=== PATIENT | male | born 1990 | race Caucasian/White ===

== ENCOUNTER 2016-05-15 14:29 | Inpatient (IN) | payer BC, OTHER ==
[~2016-05-15] VITALS: Ht 175.3 cm; Wt 68.0 kg
[~2016-05-15 14:29] MED LIST: Amox Tr/Potassium Clavulanate PO; BENZ12LI MM; FLUT16SP NS; GABA800T2 PO; HYDR30CR10 TP; IBUP-1482 PO; LIDO20SO MM; MULT-24 PO; NICO4LOZ BC; QUET100T PO; SODI45SP6 NS; [UNRECOGNIZED DRUG - CODE] TP
[2016-05-15 17:30] VITALS: BP 126/67
[2016-05-15] MEDS ORDERED: BUPR-51 PO (17:36)
[2016-05-15 17:56] LABS: *AMPHETAMINE, URINE NEGATIVE (NEGATIVE); *BARBITURATE, URINE NEGATIVE (NEGATIVE); *CANNABINOID, URINE NEGATIVE (NEGATIVE); *COCCAINE, URINE NEGATIVE (NEGATIVE); *OPIATE, URINE POSITIVE (NEGATIVE); *PHENCYCLIDINE SCREEN,URINE NEGATIVE (NEGATIVE)
--- NOTE | 2016-05-15 18:30 | NUR ---
Admission Note; Patient is a 26 year old male, AOX4, presented to [facility] to detoxify from Heroin and Xanax. Patient arrived at intake office at approximately 1630. he is the primary source of information. Patient is admitted under the care of Dr. Gonzalez to room 304. Urine provided by patient for urine drug screen. Thorough belonging and body check done by CHIEF BUILDING INSPECTOR. Skin check done, open skin noted on patient's left arm due to previous abscess I & D procedure, site kept clean and dry. Patient appears anxious , with flushed face. Patient reported allergies to bees and Naloxone. Admitting vital signs are as follows; BP 126/67, HR 67, Temperature 97.7, Respirations 18, Spo2 100% on room air, COWS score of 5 and CIWA of 6. Discussed substance use history. Patient started using Heroin when he was 20 y/o, he recently relapsed 1 month and 3 weeks ago and started using Heroin 3 G/daily IV last used 05/13/16 3 G. Patient started using Xanax when he was 16 y/o, recently relapsed and started using 6mg-10mg Po/Snort last used 05/14/16 8mg. Patient also reported drinking ETOH (Vodka) on occasional basis only last drank 2 weeks ago. Discussed medical and psych history. Patient reported history of Hepatitis C, Cracked disc on his neck and recent outpatient I&D procedure for his left arm abscess, anxiety and depression. Patient reported history of seizure d/t withdrawal years ago. Patient does not have a primary care physician. Home medications reconciled. Patient has been to multiple treatment Centers before. Patient was recently at [facility] in November and was discharged on November 21, 2015. Patient has also been to [facility] in [facility] and [facility]. Oriented patient to unit. safety measures in place. Patient refused PNA/FLU vaccinations. Detailed report given to Dr. Gonzalez, psychiatrist was also notified. Will continue to monitor patient.
[2016-05-15] MEDS ORDERED: HYDROXYZINE PAMOATE 25 MG CAPSULE PO PRN (19:15)
[2016-05-15] MEDS ORDERED: ONDANSETRON ODT 4 MG TAB.RAPDIS SL PRN (19:15)
[2016-05-15] MEDS ORDERED: ACETAMINOPHEN 325 MG TABLET PO PRN (19:15)
[2016-05-15] MEDS ORDERED: LOPERAMIDE HCL 2 MG CAPSULE PO PRN ×2 (19:15)
[2016-05-15] MEDS ORDERED: ONDANSETRON 4 MG/2 ML VIAL IM PRN (19:15)
[2016-05-15] MEDS ORDERED: LORAZEPAM 2 MG/1 ML VIAL IM PRN (19:15)
[2016-05-15] MEDS ORDERED: MAGNESIUM HYDROXIDE 30 ML LIQUID UDC PO PRN (19:15)
[2016-05-15] MEDS ORDERED: THIAMINE HCL 200 MG/2 ML VIAL IM ONE (19:15)
[2016-05-15] MEDS ORDERED: MAG HYDROX/AL HYDROX/SIMETH 30 ML LIQUID UDC PO PRN (19:15)
[2016-05-15] MEDS ORDERED: diphenhydrAMINE 50 MG CAPSULE PO PRN (19:15)
[2016-05-15] MEDS ORDERED: CLONIDINE HCL 0.1 MG TABLET PO PRN (19:15)
[2016-05-15] MEDS ORDERED: LORAZEPAM 1 MG TABLET PO PRN ×2 (19:15)
[2016-05-15] MEDS ORDERED: MIRALAX 17 GM POWD.PACK PO PRN (19:15)
[2016-05-15] MEDS ORDERED: DICYCLOMINE HCL 20 MG TABLET PO PRN (19:15)
--- NOTE | 2016-05-15 19:21 | NUR ---
End of shift note; Patient is AOX4. Detailed report given to oncoming nurse. Safety measures secured.
[2016-05-15] MEDS ORDERED: BUPRENORPHINE HCL 2 MG TAB.SUBL SL PRN (19:30)
--- NOTE | 2016-05-15 19:30 | NUR ---
START OF SHIFT NOTE: Patient is a 26 y/o male admitted today 05/15/16 for Opiate and Benzo dependence. Patient reported using Heroin IV 3 grams daily, Xanax 6-10mg daily and ETOH occasionally. Patient with past medical history of I&D, Cracked disk on neck, Hepatitis C, Anxiety, & Depression. Seizure & Fall precaution. Patient is on a regular diet with allergies to bees and Naloxone. Full Code status. Patient placed on a 5-day Subutex and 5-day Ativan taper to be started tomorrow @ 0900. Initial Cows 5 Ciwa 6. No PRN medication given during day shift. Patient with left arm Open skin post I&D. Dressing clean and intact. No bleeding noted. Patient is alert & oriented x4. No shortness of breath noted. Respiration even & unlabored. Abdomen soft & non-distended. Bowel sounds active in all four quadrants. Patient complains of nausea & stomach cramps. No episode of vomiting noted. Patient noted with 8/10 body aches and noted to be restless and anxious. Facial grimacing noted. Patient complains of cold sweats and chills & 6/10 headache. No hallucinations noted. Patient denies SI/HI. Safety precautions are in place. Bed locked in lowest position. Both side rails up. Call light within pts reach. Will continue to monitor patient.
[2016-05-15 20:00] VITALS: BP 118/75
[2016-05-15] MEDS ORDERED: ALPR2TAB7 PO (20:03)
[2016-05-15] MEDS: GABAPENTIN 400 MG CAPSULE PO SCH (20:41)
[2016-05-15] MEDS: IBUPROFEN 600 MG TABLET PO PRN (20:42)
[2016-05-15] MEDS ORDERED: GABAPENTIN 300 MG CAPSULE PO SCH ×2 (21:00)
[2016-05-15 21:04] LABS: BASOPHILS # (AUTO) 0.1 K/uL (0.0-0.2); BASOPHILS % (AUTO) 0.8 % (0.0-2.0); EOSINOPHILS # (AUTO) 0.1 K/uL (0.0-0.7); EOSINOPHILS % (AUTO) 0.9 % (0.0-7.0); HEMOGLOBIN 14.8 g/dL (14.0-18.0); LYMPHOCYTES # (AUTO) 2.3 K/uL (0.8-4.8); LYMPHOCYTES % (AUTO) 33.9 % (20.5-51.5); MEAN CORPUSCULAR HGB CONC 33 g/dL (32.0-37.0); MONOCYTES # (AUTO) 0.6 K/uL (0.1-1.30); MONOCYTES % (AUTO) 8.1 % (0.0-11.0); NEUTROPHILS # (AUTO) 3.7 K/uL (1.8-8.9); NEUTROPHILS % (AUTO) 56.3 % (38.5-71.5); PLATELET COUNT (AUTO) 199 K/uL (150-450); RED BLOOD CELL COUNT(AUTO) 4.78 MIL/uL (4.70-6.10); RED CELL DISTRIBUTION WIDTH 11.5 % (11.5-14.5); WHITE BLOOD COUNT (AUTO) 6.8 K/uL (4.0-11.2)
[2016-05-15 21:16] LABS: ETHANOL < 3 MG/DL (0-0)
[2016-05-15 21:18] LABS: ALANINE AMINOTRANSFERASE 72 U/L (16-63); ALBUMIN 3.6 g/dL (3.4-5.0); ALKALINE PHOSPHATASE 82 U/L (50-136); ASPARTATE AMINOTRANSFERASE 46 U/L (15-37); BILIRUBIN,TOTAL 0.4 mg/dL (0.2-1.0); CHLORIDE 102 mmol/L (98-107); GFR 89 mL/min (>60); GLUCOSE 84 mg/dL (74-106); MAGNESIUM 1.9 mg/dL (1.8-2.4); POTASSIUM 3.8 mmol/L (3.5-5.1); SODIUM SERUM 140 mmol/L (136-145); TOTAL PROTEIN, SERUM 7.4 g/dL (6.4-8.2); UREA NITROGEN, BLOOD 11 mg/dL (7-18)
[2016-05-15 21:23] LABS: CARBON DIOXIDE 33 mmol/L (21-32)
[2016-05-15 21:29] LABS: THYROID STIMULATING HORMONE 0.316 mIU/mL (0.358-3.740)
[2016-05-15 21:36] LABS: HIV-1/2 ANTIBODY NON REACTIVE (NONREACTIVE)
[2016-05-15 21:37] LABS: HIV-1 p24 ANTIGEN NON REACTIVE (NONREACTIVE)
[2016-05-16] MEDS: METHOCARBAMOL 750 MG TABLET PO PRN ×2 (00:13→21:44)
--- NOTE | 2016-05-16 00:13 | NUR ---
PRN Clonidine & Robaxin Patient complains fo sweating, chills, anxiety & 5/10 body aches. Vitals signs WNL. Patient noted to be restless and appears anxious. PRN Clonidine & Robaxin given as ordered. Will continue to monitor patient.
[2016-05-16 00:29] VITALS: BP 124/78
--- NOTE | 2016-05-16 01:13 | NUR ---
PRN Reassessment PRN effective. Patient verbalized relief from withdrawals and body aches. No s/s of distress noted. No shortness of breath noted. Respiration even & unlabored. Safety precautions are in place. Will contiue to monitor patient.
[2016-05-16 04:00] VITALS: BP 104/59
--- NOTE | 2016-05-16 07:06 | NUR ---
END OF SHIFT NOTE: Patient is a 26 y/o male admitted today 05/15/16 for Opiate and Benzo dependence. Patient reported using Heroin IV 3 grams daily, Xanax 6-10mg daily and ETOH occasionally. Patient with past medical history of I&D, Cracked disk on neck, Hepatitis C, Anxiety, & Depression. Seizure & Fall precaution. Patient is on a regular diet with allergies to bees and Naloxone. Full Code status. Patient with left arm Open skin post I&D. Dressing clean and intact. No bleeding noted. Patient placed on a 5-day Subutex and 5-day Ativan taper to be started today @ 0900. At 2041, pt c/o of withdrawal symptoms and noted with a COWS 13 CIWA 10 and was given PRN Subutex 4mg, Ativan 1mg, Zofran for nausea and Motrin for body aches. Pt was also given PRN Clonidine and Robaxin at midnight and all were effective. Pt reported that medication was effective in controlling his withdrawal symptoms. Last COWS 6 CIWA 4 noted. Pt remained stable and vitals remains WNL. Pt slept for a total of 4 hours. Pt consumed 1096ml of fluids. Voided 1x with no bowel movement. All needs attended & met. Safety precautions are in place. Will endorse pt to day shift nurse.
--- NOTE | 2016-05-16 07:46 | NUR ---
Start of shift note; Received report from night nurse.Patient is currently resting with eyes closed, respirations even and unlabored. Patient is 26 y/o male admitted on 05/15/16 for Opiate/Benzo dependence. Patient started using Heroin when he was 20 y/o, he recently relapsed 1 month and 3 weeks ago and started using Heroin 3 G/daily IV last used 05/13/16 3 G. Patient started using Xanax when he was 16 y/o, recently relapsed and started using 6mg-10mg Po/Snort last used 05/14/16 8mg. Patient also reported drinking ETOH (Vodka) on occasional basis only last drank 2 weeks ago. Discussed medical and psych history. Patient reported history of Hepatitis C, Cracked disc on his neck and recent outpatient I&D procedure for his left arm abscess, anxiety and depression. Patient was placed on 5 day Subutex and 5 day Ativan taper to start today. Patient slept for 4 hours. Patient's last CIWA is 10 and last COWS is 13. Patient received PRN Ativan and PRN Subutex last night, noted to be effective. All safety measures secured. Will continue to monitor patient.
[2016-05-16 08:00] VITALS: BP 101/61
[2016-05-16] MEDS ORDERED: TUBERCULIN,PURIF.PROT.DERIV. 5 TU/0.1 ML TEST ID ONE (09:00)
[2016-05-16] MEDS ORDERED: 5 DAY TAPER BUPRENORPHINE -SERENITY PROTOCOL SL PRN (09:00)
[2016-05-16] MEDS ORDERED: 5 DAY TAPER OF LORAZEPAM -SERENITY PROTOCOL PO PRN (09:00)
[2016-05-16] MEDS: LORAZEPAM 1 MG TABLET PO SCH ×4 (09:47→21:44)
[2016-05-16] MEDS: THIAMINE HCL 100 MG TABLET PO SCH (09:48)
[2016-05-16] MEDS: GABAPENTIN 400 MG CAPSULE PO SCH ×3 (09:48→21:43)
[2016-05-16] MEDS: BUPRENORPHINE HCL 2 MG TAB.SUBL SL SCH ×4 (09:48→21:44)
[2016-05-16] MEDS: MULTIVITAMINS,THERAPEUTIC TABLET PO SCH (09:48)
[2016-05-16] MEDS: FOLIC ACID 1 MG TABLET PO SCH (09:48)
[2016-05-16] MEDS: DOCUSATE SODIUM 250 MG CAPSULE PO SCH (09:48)
[2016-05-16] MEDS: buPROPion XL 150 MG TAB.SR.24H PO SCH (09:48)
[2016-05-16 12:00] VITALS: BP 110/86
[2016-05-16 16:00] VITALS: BP 115/87
[2016-05-16] MEDS ORDERED: QUETIAPINE FUMARATE 100 MG TABLET PO SCH (18:00)
[2016-05-16] MEDS: BACITRACIN/POLYMYXIN B OINT 15 GM TUBE TOP SCH ×2 (18:28→21:00)
--- NOTE | 2016-05-16 18:29 | NUR ---
End of shift note; Patient is AOX4. Patient is 26 y/o male admitted on 05/15/16 for Opiate/Benzo dependence. Patient was started on 5 day Subutex and 5 day Ativan tapers today. Medications were effective in reducing withdrawal symptoms. Patient remained compliant with treatment plans. Patient was seen and evaluated by infectious disease doctor, ordered Bactrim DS Q12HR and Double ATB Ointment Q12 Hr to be applied to LUE wound, patient verbalized understanding. All safety measures secured. Met all needs.
[2016-05-16] MEDS ORDERED: BACITRACIN/POLYMYXIN B OINT 15 GM TUBE TOP PRN (18:30)
--- NOTE | 2016-05-16 19:30 | NUR ---
START OF SHIFT NOTE: Patient is a 26 y/o male admitted today 05/15/16 for Opiate and Benzo dependence. Patient reported using Heroin IV 3 grams daily, Xanax 6-10mg daily and ETOH occasionally. Patient with past medical history of I&D, Cracked disk on neck, Hepatitis C, Anxiety, & Depression. Seizure & Fall precaution. Patient is on a regular diet with allergies to bees and Naloxone. Full Code status. Patient is on a 5-day Subutex and 5-day Ativan taper and tolerating well. Last Cows 7 Ciwa 5. No PRN medication given during day shift. Patient with left arm Open skin post I&D. Dressing clean and intact. No bleeding noted. Patient is on ATB Bactrim PO for infection. Patient is alert & oriented x4. No shortness of breath noted. Respiration even & unlabored. Abdomen soft & non-distended. Bowel sounds active in all four quadrants. Patient complains of nausea & stomach cramps. No episode of vomiting noted. Patient noted with 8/10 body aches and noted to be restless and anxious. Facial grimacing noted. Patient complains of cold sweats and chills, restless legs & mild headache. No hallucinations noted. Patient denies SI/HI. Safety precautions are in place. Bed locked in lowest position. Both side rails up. Call light within pts reach. Will continue to monitor patient.
[2016-05-16 20:00] VITALS: BP 112/71
--- NOTE | 2016-05-16 21:00 | NUR ---
Late medication Patient refused to take medication for sleep at scheduled time. Patient requested if he can take medication at a later time. Scheduled seroquel was given to patient @ 8330. Patient is lying in bed. No s/s of distress noted. Will continue to monitor.
[2016-05-16] MEDS: SULFAMETH/TRIMETH 800/160 MG TABLET PO SCH (21:43)
--- NOTE | 2016-05-16 21:44 | NUR ---
PRN Robaxin Patient complains of 8/10 body aches. Patient appears restless with facial grimacing noted. PRn Robaxin given as ordered. Will continue to monitor.
--- NOTE | 2016-05-16 22:44 | NUR ---
PRN Reassessment PRN medication effective. Patient verbalized relief from body aches. Patient appears comfortable. No s/s of distress noted. Will continue to monitor.
[2016-05-16] MEDS: QUETIAPINE FUMARATE 100 MG TABLET PO SCH (23:28)
[2016-05-17] VITALS: BP 113/74
--- NOTE | 2016-05-17 04:00 | NUR ---
Vitals/Cows/Ciwa deferred Patient refused vitals at this time. Patient asleep in bed and appears comfortable. No s/s of distress noted. respiration even & unlabored. Safety precautions are in place. Will continue to monitor patient.
--- NOTE | 2016-05-17 07:08 | NUR ---
END OF SHIFT NOTE: Patient is a 26 y/o male admitted today 05/15/16 for Opiate and Benzo dependence. Patient reported using Heroin IV 3 grams daily, Xanax 6-10mg daily and ETOH occasionally. Patient with past medical history of I&D, Cracked disk on neck, Hepatitis C, Anxiety, & Depression. Seizure & Fall precaution. Patient is on a regular diet with allergies to bees and Naloxone. Full Code status. Patient with left arm Open skin post I&D. Dressing clean and intact. No bleeding noted. Patient is on a 5-day Subutex and 5-day Ativan taper and tolerating well. Pt reported that medication is effective in controlling his withdrawal symptoms. Last COWS 6 CIWA 3 noted. PRN Robaxin given to pt and were effective. Pt remained stable and vitals remains WNL. Pt slept for a total of 5 hours. Pt consumed 2484 ml of fluids. Voided 2x with no bowel movement. All needs attended & met. Safety precautions are in place. Will endorse pt to day shift nurse.
--- NOTE | 2016-05-17 07:34 | NUR ---
Start of shift note; Received report from night nurse.Patient is currently resting with eyes closed, respirations even and unlabored. Patient is 26 y/o male admitted on 05/15/16 for Opiate/Benzo dependence. Patient started using Heroin when he was 20 y/o, he recently relapsed 1 month and 3 weeks ago and started using Heroin 3 G/daily IV last used 05/13/16 3 G. Patient started using Xanax when he was 16 y/o, recently relapsed and started using 6mg-10mg Po/Snort last used 05/14/16 8mg. Patient also reported drinking ETOH (Vodka) on occasional basis only last drank 2 weeks ago. Discussed medical and psych history. Patient reported history of Hepatitis C, Cracked disc on his neck and recent outpatient I&D procedure for his left arm abscess, anxiety and depression. Patient was placed on 5 day Subutex and 5 day Ativan taper, no adverse reactions noted. Patient slept for 5 hours. Patient received PRN Robaxin last night, noted to be effective. All safety measures secured. Will continue to monitor patient.
[2016-05-17 08:00] VITALS: BP 103/62
[2016-05-17] MEDS: BUPRENORPHINE HCL 2 MG TAB.SUBL SL SCH ×3 (09:00→20:32)
[2016-05-17] MEDS: buPROPion XL 150 MG TAB.SR.24H PO SCH (09:00)
[2016-05-17] MEDS: FLUTICASONE PROP NASAL SPRAY 16 GM BOTTLE NS SCH ×2 (09:00→16:52)
[2016-05-17] MEDS: SULFAMETH/TRIMETH 800/160 MG TABLET PO SCH ×2 (09:00→20:31)
[2016-05-17] MEDS: THIAMINE HCL 100 MG TABLET PO SCH (09:00)
[2016-05-17] MEDS: DOCUSATE SODIUM 250 MG CAPSULE PO SCH (09:00)
[2016-05-17] MEDS: BACITRACIN/POLYMYXIN B OINT 15 GM TUBE TOP SCH ×2 (09:00→20:35)
[2016-05-17] MEDS: FOLIC ACID 1 MG TABLET PO SCH (09:00)
[2016-05-17] MEDS: LORAZEPAM 1 MG TABLET PO SCH ×3 (09:00→20:31)
[2016-05-17] MEDS: GABAPENTIN 400 MG CAPSULE PO SCH ×3 (09:00→20:31)
[2016-05-17] MEDS: MULTIVITAMINS,THERAPEUTIC TABLET PO SCH (09:00)
--- NOTE | 2016-05-17 10:13 | NUR ---
Medication refusal; Patient refused all morning medications due, educated patient regarding the importance of compliance to medication regime, patient verbalized understanding. Will continue to monitor patient. Addendum: 05/17/16 at 1111 by GILBERT CROOKS LVN MD made aware regarding patient's refusal to medications.
[2016-05-17 12:00] VITALS: BP 120/73
[2016-05-17 16:00] VITALS: BP 105/78
--- NOTE | 2016-05-17 18:12 | NUR ---
End of shift note; Patient is AOX4. Patient is 26 y/o male admitted on 05/15/16 for Opiate/Benzo dependence. Patient was started on 5 day Subutex and 5 day Ativan tapers today. Medications were effective in reducing withdrawal symptoms. Patient remained compliant with treatment plans. MD ordered Bactrim DS Q12HR and Double ATB Ointment Q12 Hr to be applied to LUE wound. All safety measures secured. Met all needs.
[2016-05-17 20:00] VITALS: BP 128/83
--- NOTE | 2016-05-17 20:00 | NUR ---
Start of Shift Pt is a 26 year old male admitted on 05/15/2016 for Opiate/Benzo dependence, placed on 5 day Ativan and 5 day Subutex taper. Pt reported using Heroin IV 3 grams/daily, Xanax Snort/PO 6-10mg and pt reported he drinks ETOH occasionally. Pt relapsed 1 month and 3 weeks ago. Pt is allergic to bees and Naloxone, regular diet, fall/seizure precautions and full code. PMH: I & D of abscess 2 weeks ago of LUE, cracked disc on neck (1 year ago), Hepatitis C, anxiety and depression. Upon assessment, pt reports anxiety and body/joint aches, respirations even and unlabored, denies SOB/chest pain, denies n/v/d, skin warm, moist, pt is on Bactrim DS Q12HR and Double ATB ointment Q12H HR to be applied to LUE wound. bowel sounds active x4, abdomen soft. Safety measures in place, call light within reach, side rails up x2, bed locked and in low position. Will continue to monitor.
[2016-05-17] MEDS: QUETIAPINE FUMARATE 100 MG TABLET PO SCH (20:31)
[2016-05-17] MEDS: METHOCARBAMOL 750 MG TABLET PO PRN (23:33)
--- NOTE | 2016-05-17 23:33 | NUR ---
PRN Administration Pt reported muscle aches. Robaxin 750mg PRN administered. Safety measures in place, call light within reach, side rails up x2, bed locked and in low position. Will continue to monitor.
[2016-05-18] VITALS: BP 125/84
--- NOTE | 2016-05-18 | NUR ---
Vital Signs BP 124/84, pulse 98, respirations 16, Spo2 99%, temp 97.8 CIWA/COWS deferred d/t pt sleeping, to asses while pt is awake as ordered. Pt is sleeping, no s/s of distress noted, respirations even and unlabored. Safety measures in place, call light within reach, side rails up x2, bed locked and in low position. Will continue to monitor.
--- NOTE | 2016-05-18 00:33 | NUR ---
PRN Reassessment Upon reassessment, pt is sleeping, no s/s of distress noted, respirations even and unlabored. Safety measures in place, call light within reach, side rails up x2, bed locked and in low position. Will continue to monitor.
--- NOTE | 2016-05-18 04:00 | NUR ---
Pt refused to be woken up for 0400 VS CIWA/COWS deferred d/t pt sleeping, to asses while pt is awake as ordered. Pt is sleeping, no s/s of distress noted, respirations even and unlabored. Safety measures in place, call light within reach, side rails up x2, bed locked and in low position. Will continue to monitor.
--- NOTE | 2016-05-18 07:00 | NUR ---
End of Shift Pt is a 26 year old male admitted on 05/15/2016 for Opiate/Benzo dependence, placed on 5 day Ativan and 5 day Subutex taper. Pt reported using Heroin IV 3 grams/daily, Xanax Snort/PO 6-10mg and pt reported he drinks ETOH occasionally. Pt relapsed 1 month and 3 weeks ago. Pt is allergic to bees and Naloxone, regular diet, fall/seizure precautions and full code. PMH: I & D of abscess 2 weeks ago of LUE, cracked disc on neck (1 year ago), Hepatitis C, anxiety and depression. During shift, pt presented with anxiety and body/joint aches - scheduled taper medications administered, effective in management of s/s of withdrawal as reported per pt, COWS 2 and CIWA 2. PRN Robaxin administered for muscle aches, effective. Pt is on Bactrim DS Q12HR and Double ATB ointment Q12H HR to be applied to LUE wound abscess. Pt slept for 4 hours, intake of 2867ml PO and voids x3. Safety measures in place, call light within reach, side rails up x2, bed locked and in low position. Endorsed to day shift nurse.
[2016-05-18 08:00] VITALS: BP 100/61
[2016-05-18] MEDS: BACITRACIN/POLYMYXIN B OINT 15 GM TUBE TOP SCH ×2 (09:00→21:26)
[2016-05-18] MEDS ORDERED: BUPRENORPHINE HCL 2 MG TAB.SUBL SL SCH (09:00)
[2016-05-18] MEDS: LORAZEPAM 1 MG TABLET PO SCH ×4 (09:24→21:21)
[2016-05-18] MEDS: buPROPion XL 150 MG TAB.SR.24H PO SCH (09:24)
[2016-05-18] MEDS: SULFAMETH/TRIMETH 800/160 MG TABLET PO SCH ×2 (09:24→21:21)
[2016-05-18] MEDS: DOCUSATE SODIUM 250 MG CAPSULE PO SCH (09:24)
[2016-05-18] MEDS: GABAPENTIN 400 MG CAPSULE PO SCH ×3 (09:25→21:21)
[2016-05-18] MEDS: FOLIC ACID 1 MG TABLET PO SCH (09:25)
[2016-05-18] MEDS: MULTIVITAMINS,THERAPEUTIC TABLET PO SCH (09:25)
[2016-05-18] MEDS: THIAMINE HCL 100 MG TABLET PO SCH (09:26)
[2016-05-18] MEDS: FLUTICASONE PROP NASAL SPRAY 16 GM BOTTLE NS SCH ×2 (09:26→17:13)
--- NOTE | 2016-05-18 09:45 | NUR ---
START OF SHIFT RECEIVED PT THIS AM AOX4 EATING BREAKFAST IN ROOM. PT STATES HE IS EXPERIENCING COLD SWEATS, LEG ACHES, NASAL STUFFINESS, STOMACH CRAMPS, ANXIOUSNESS AND TREMORS. PT DENIES S/I AND H/I. MEDICATED PT WITH MORNING MEDICATIONS. COWS 7 CIWA 6. WILL MONITOR EFFECTIVENESS OF MORNING MEDICATIONS. PT STATES HE HAD A DIFFICULT TIME FALLING ASLEEP LAST NIGHT AND ONLY SLEPT 4 HRS. PT CONTINUES ON 5 DAY ATIVAN AND SUBUTEX TAPER. TB TEST READ THIS AM AND WAS NEG. ENCOURAGED PT TO ATTEND GROUP TODAY AND DRINK FLUIDS TO FACILITATE HIS DETOX. WILL CONTINUE TO MONITOR AND PROVIDE SAFE AND SUPPORTIVE ENVIRONMENT.
[2016-05-18 12:00] VITALS: BP 105/78
[2016-05-18] MEDS: BUPRENORPHINE HCL 2 MG TAB.SUBL SL SCH ×2 (14:31→21:21)
[2016-05-18] MEDS: METHOCARBAMOL 750 MG TABLET PO PRN (14:35)
--- NOTE | 2016-05-18 14:36 | NUR ---
PRN ADMINISTRATION PRN ROBAXIN GIVEN TO PT FOR C/O LEG ACHES. WILL MONITOR EFFECTIVENESS.
--- NOTE | 2016-05-18 15:24 | NUR ---
PRN REASSESSMENT PRN ROBAXIN EFFECTIVE. PT STATES IT GAVE HIM RELIEF FROM LEG PAINS. PT IN NO DISTRESS.
[2016-05-18 16:00] VITALS: BP 115/76
[2016-05-18] MEDS: IBUPROFEN 600 MG TABLET PO PRN (17:13)
--- NOTE | 2016-05-18 17:15 | NUR ---
PRN MOTRIN GIVEN FOR REPORTED BODY ACHES.
--- NOTE | 2016-05-18 18:00 | NUR ---
PRN REASSESSMENT PT SLEEPING IN BED APPEARS TO BE IN NO DISTRESS. RR EVEN AND UNLABORED. BED IN LOWEST POSITION AND LOCKED. CALL FIGUEROA IN REACH. WILL CONTINUE TO MONITOR.
--- NOTE | 2016-05-18 18:38 | NUR ---
END OF SHIFT PT CONTINUES 5 DAY ATIVAN AND SUBUTEX TAPER. PT C/O MUSCLE ACHES TODAY AND WAS GIVEN ROBAXIN AND MOTRIN WITH EFFECTIVENESS. PT COMPLIANT WITH TREATMENT PLAN. LAST CIWA 3 COWS 6. PT INTERACTED WITH PEERS TODAY AND ATTENDED ACTIVITIES. INFECTIOUS DISEASE RESIDENTIAL TREATMENT STAFF ASSESSED PT WOUND. NO NEW ORDERS NOTED. NEW BANDAIDS AND GAUZE APPLIED TO WOUND PER PT REQUEST. ALL NEEDS MET. PT CURRENTLY SLEEPING IN BED WITH BED LOCKED AND IN LOWEST POSITION. RR EVEN AND UNLABORED. CALL FIGUEROA IN REACH. WILL PASS REPORT TO NIGHT NURSE.
[2016-05-18 20:00] VITALS: BP 116/71
--- NOTE | 2016-05-18 20:00 | NUR ---
Start of Shift Pt is a 26 year old male admitted on 05/15/2016 for Opiate/Benzo dependence, placed on 5 day Ativan and 5 day Subutex taper. Pt reported using Heroin IV 3 grams/daily, Xanax Snort/PO 6-10mg and pt reported he drinks ETOH occasionally. Pt relapsed 1 month and 3 weeks ago. Pt is allergic to bees and Naloxone, regular diet, fall/seizure precautions and full code. PMH: I & D of abscess 2 weeks ago of LUE, cracked disc on neck (1 year ago), Hepatitis C, anxiety and depression. Upon assessment, pt reports body/joint aches, respirations even and unlabored, denies SOB/chest pain, denies n/v/d, skin warm, moist, pt is on Bactrim DS Q12HR and Double ATB ointment Q12H HR to be applied to LUE wound. bowel sounds active x4, abdomen soft. Safety measures in place, call light within reach, side rails up x2, bed locked and in low position. Will continue to monitor.
[2016-05-18] MEDS: QUETIAPINE FUMARATE 100 MG TABLET PO SCH (21:21)
[2016-05-19] VITALS: BP 110/74
--- NOTE | 2016-05-19 | NUR ---
Vital Signs BP 110/74, pulse 90, respirations 16, Spo2 99%, temp 98.1 CIWA/COWS deferred d/t pt sleeping, to asses while pt is awake as ordered. Pt is sleeping, no s/s of distress noted, respirations even and unlabored. Safety measures in place, call light within reach, side rails up x2, bed locked and in low position. Will continue to monitor.
[2016-05-19 03:09] LABS: HCV AB >11.0 s/co ratio (0.0-0.9); HEPATITIS B CORE AB, IgM Negative (Negative); HEPATITIS B SURFACE AG Negative (Negative)
--- NOTE | 2016-05-19 07:00 | NUR ---
End of Shift Pt is a 26 year old male admitted on 05/15/2016 for Opiate/Benzo dependence, placed on 5 day Ativan and 5 day Subutex taper. Pt reported using Heroin IV 3 grams/daily, Xanax Snort/PO 6-10mg and pt reported he drinks ETOH occasionally. Pt relapsed 1 month and 3 weeks ago. Pt is allergic to bees and Naloxone, regular diet, fall/seizure precautions and full code. PMH: I & D of abscess 2 weeks ago of LUE, cracked disc on neck (1 year ago), Hepatitis C, anxiety and depression. During shift, pt presented wtih body/joint aches - scheduled taper medications administered, effective in management of s/s of withdrawal, as stated by pt, COWS 5 and CIWA 3. No PRN medications administered. Pt slept for 5 hours, intake of 1700 ml PO and voids x2. VS stable, Safety measures in place, call light within reach, side rails up x2, bed locked and in low position. Endorsed to day shift nurse.
--- NOTE | 2016-05-19 07:01 | NUR ---
Start of Shift Notes: Received patient in his room. Alert and oriented x 4. Verbally responsive. Appears anxious and tremulous at this time. Able to make his needs known. Respirations even and unlabored. No SOB noted. Skin warm and dry to touch. Abdomen soft and non-distended. BS (+) in all 4 quadrants. No complains of N/V/D or constipation noted. Bladder non-distended. No complains of dysuria noted. Voids independently. Ambulatory ad marya with steady gait. Patient is a 26 year old male admitted for opiate/BZO and ETOh dependence who was placed on a 5-day Ativan taper as ordered and 5-day Subutex taper as ordered. No adverse reactions noted. Has past medical hx of Hep C, anxiety, depression. Allergic to Naloxone. FULL CODE. Regular diet. On fall and seizure precautions. Educated patient on the current plan of care for the day and the medication regimen. Encouraged oral fluid intake and encouraged group participation to learn new skills to prevent relapse. Will continue to monitor closely.
[2016-05-19 08:00] VITALS: BP 97/55
[2016-05-19 08:56] LABS: BASOPHILS # (AUTO) 0.1 K/uL (0.0-0.2); BASOPHILS % (AUTO) 1.3 % (0.0-2.0); EOSINOPHILS # (AUTO) 0.2 K/uL (0.0-0.7); EOSINOPHILS % (AUTO) 3.2 % (0.0-7.0); HEMATOCRIT 42.8 % (40.0-50.0); HEMOGLOBIN 14.5 g/dL (14.0-18.0); LYMPHOCYTES % (AUTO) 53.4 % (20.5-51.5); MEAN CORPUSCULAR HEMOGLOBIN 31.8 uug (27.0-31.0); MEAN CORPUSCULAR HGB CONC 34 g/dL (32.0-37.0); MEAN CORPUSCULAR VOLUME 93.6 fL (82.0-92.0); MONOCYTES # (AUTO) 0.5 K/uL (0.1-1.30); MONOCYTES % (AUTO) 8.4 % (0.0-11.0); NEUTROPHILS # (AUTO) 1.9 K/uL (1.8-8.9); NEUTROPHILS % (AUTO) 33.7 % (38.5-71.5); PLATELET COUNT (AUTO) 221 K/uL (150-450); RED BLOOD CELL COUNT(AUTO) 4.57 MIL/uL (4.70-6.10); RED CELL DISTRIBUTION WIDTH 11.9 % (11.5-14.5); WHITE BLOOD COUNT (AUTO) 5.8 K/uL (4.0-11.2)
[2016-05-19] MEDS: MULTIVITAMINS,THERAPEUTIC TABLET PO SCH (09:10)
[2016-05-19] MEDS: DOCUSATE SODIUM 250 MG CAPSULE PO SCH (09:10)
[2016-05-19] MEDS: FLUTICASONE PROP NASAL SPRAY 16 GM BOTTLE NS SCH ×2 (09:10→16:08)
[2016-05-19] MEDS: buPROPion XL 150 MG TAB.SR.24H PO SCH (09:10)
[2016-05-19] MEDS: BUPRENORPHINE HCL 2 MG TAB.SUBL SL SCH ×3 (09:11→21:06)
[2016-05-19] MEDS: LORAZEPAM 1 MG TABLET PO SCH ×3 (09:11→21:06)
[2016-05-19] MEDS: BACITRACIN/POLYMYXIN B OINT 15 GM TUBE TOP SCH ×2 (09:11→21:07)
[2016-05-19] MEDS: THIAMINE HCL 100 MG TABLET PO SCH (09:11)
[2016-05-19] MEDS: FOLIC ACID 1 MG TABLET PO SCH (09:11)
[2016-05-19 09:34] LABS: BASOPHILS % (MANUAL) 0 % (0-2); EOSINOPHILS % (MANUAL) 4 % (0-8); LYMPHOCYTES % (MANUAL) 53 % (20-40); MONOCYTES % (MANUAL) 9 % (2-10); NEUTROPHILS % (MANUAL) 27 % (42-75); PLATELET ESTIMATE ADEQUATE
[2016-05-19] MEDS: GABAPENTIN 400 MG CAPSULE PO SCH ×3 (09:40→21:06)
[2016-05-19 09:59] LABS: CALCIUM 8.4 mg/dL (8.5-10.1); CREATININE 1.2 mg/dL (0.6-1.3); MAGNESIUM 1.9 mg/dL (1.8-2.4); PHOSPHOROUS 4.4 mg/dL (2.5-4.9); POTASSIUM 4.4 mmol/L (3.5-5.1)
[2016-05-19 12:00] VITALS: BP 125/75
[2016-05-19] MEDS: CLONIDINE HCL 0.1 MG TABLET PO SCH ×2 (14:04→21:06)
[2016-05-19 16:00] VITALS: BP 109/70
--- NOTE | 2016-05-19 16:08 | NUR ---
Flonase not administered: Flonase at 1700 not administered at this time. Per patient, he does not need it. No complains of runny nose or stuffiness noted. Educated patient on the risk and consequences but patient still refused.
--- NOTE | 2016-05-19 18:40 | NUR ---
End of Shift Notes: Patient is a 26 year old male admitted for opiate and BZO dependence who was placed on a 5-day Ativan and 5-day Subutex taper as ordered. No adverse reactions noted. Patient is tolerating taper well. Has past medical hx of I&D on left arm 2 weeks prior to admission, cracked cervical disk, Hep C, anxiety and depression. Regular diet. FULL CODE. Allergic to Bees and Naloxone. Prior to admission, patient was using 3 grams of Heroin IV, Xanax 6 to 10 mg PO or snorted and occasional Vodka 1 pint. VS monitored closely q 4 hours. No significant abnormalities noted. Withdrawal symptoms were closely monitored. Patient presented with chills, hot flashes, anxiety, agitation, and mild sweats. Initial COWS 4, CIWA 4. Last COWS 2/, CIWA 2. Per patient, Subutex and Ativan has been helping him with his withdrawal symptoms. Patient requires encouragement to participate in group and activities. Labs reviewed. Seen and examined by Dr. Gonzalez with [facility]. Continue tx to left upper arm s/p I&D site. Tolerated well. Educated patient on the s.s of infection and good handwashing. All needs met and attended. Will continue to monitor closely.
[2016-05-19 20:00] VITALS: BP 121/65
--- NOTE | 2016-05-19 20:00 | NUR ---
Start of Shift Pt is a 26 year old male admitted on 05/15/2016 for Opiate/Benzo dependence, placed on 5 day Ativan and 5 day Subutex taper. Pt reported using Heroin IV 3 grams/daily, Xanax Snort/PO 6-10mg and pt reported he drinks ETOH occasionally. Pt relapsed 1 month and 3 weeks ago. Pt is allergic to bees and Naloxone, regular diet, fall/seizure precautions and full code. PMH: I & D of abscess 2 weeks ago of LUE, cracked disc on neck (1 year ago), Hepatitis C, anxiety and depression. Upon assessment, respirations even and unlabored, denies SOB/chest pain, denies n/v/d, skin warm, moist, pt is on Bactrim DS Q12HR and Double ATB ointment Q12H HR to be applied to LUE wound. bowel sounds active x4, abdomen soft. Safety measures in place, call light within reach, side rails up x2, bed locked and in low position. Will continue to monitor.
[2016-05-19] MEDS: QUETIAPINE FUMARATE 100 MG TABLET PO SCH (21:05)
--- NOTE | 2016-05-20 | NUR ---
Pt refused to be woken up for 0000 VS CIWA/COWS deferred d/t pt sleeping, to asses while pt is awake as ordered. Pt is sleeping, no s/s of distress noted, respirations even and unlabored. Safety measures in place, call light within reach, side rails up x2, bed locked and in low position. Will continue to monitor.
--- NOTE | 2016-05-20 07:00 | NUR ---
End of Shift Pt is a 26 year old male admitted on 05/15/2016 for Opiate/Benzo dependence, placed on 5 day Ativan and 5 day Subutex taper. Pt reported using Heroin IV 3 grams/daily, Xanax Snort/PO 6-10mg and pt reported he drinks ETOH occasionally. Pt relapsed 1 month and 3 weeks ago. Pt is allergic to bees and Naloxone, regular diet, fall/seizure precautions and full code. PMH: I & D of abscess 2 weeks ago of LUE, cracked disc on neck (1 year ago), Hepatitis C, anxiety and depression. Scheduled taper medications administered, COWS 2 and CIWA 2. No PRN medications administered during shift, VS stable, Pt slept for 4 hours, intake of 1006 ml PO and voids x2. Safety measures in place, call light within reach, side rails up x2, bed locked and in low position. Endorsed to day shift nurse.
--- NOTE | 2016-05-20 07:50 | NUR ---
START OF SHIFT Received report from production supervisor off shift nurse. Pt is lying in bed resting. He is a 26 yo male admitted to [facility] on 05/15 for Opiate and BZD dependence. He is A&O x4 and ambulatory. Allergies to bees and naloxone, full code status, and on a regular diet. He has a H hepatitis C, fractured disc of the neck, I&D of left arm abscess 2 weeks ago, anxiety, and depression. On admission he admitted to using heroin IV 3 grams per day, xanax 6-10mg per day, and occasional vodka use. He is ordered a 5 day subutex and Ativan taper. He has topical and PO abx for abscess site. Pt reports body aches, hot and cold flashes, and restless legs. Fall and seizure precautions in place. Bed is down with call light in reach.
[2016-05-20 08:00] VITALS: BP 104/66
[2016-05-20] MEDS: buPROPion XL 150 MG TAB.SR.24H PO SCH (09:00)
[2016-05-20] MEDS ORDERED: BUPRENORPHINE HCL 2 MG TAB.SUBL SL SCH (09:00)
[2016-05-20] MEDS: LORAZEPAM 1 MG TABLET PO SCH ×2 (09:52→21:33)
[2016-05-20] MEDS: FLUTICASONE PROP NASAL SPRAY 16 GM BOTTLE NS SCH ×2 (09:52→17:00)
[2016-05-20] MEDS: FOLIC ACID 1 MG TABLET PO SCH (09:53)
[2016-05-20] MEDS: DOCUSATE SODIUM 250 MG CAPSULE PO SCH (09:53)
[2016-05-20] MEDS: CLONIDINE HCL 0.1 MG TABLET PO SCH ×4 (09:53→21:33)
[2016-05-20] MEDS: GABAPENTIN 400 MG CAPSULE PO SCH (09:53)
[2016-05-20] MEDS: THIAMINE HCL 100 MG TABLET PO SCH (09:54)
[2016-05-20] MEDS: METHOCARBAMOL 750 MG TABLET PO PRN (09:54)
[2016-05-20] MEDS: MULTIVITAMINS,THERAPEUTIC TABLET PO SCH (09:54)
[2016-05-20] MEDS: IBUPROFEN 600 MG TABLET PO PRN (09:54)
[2016-05-20] MEDS: BACITRACIN/POLYMYXIN B OINT 15 GM TUBE TOP SCH ×2 (09:55→21:34)
--- NOTE | 2016-05-20 09:55 | NUR ---
PRN Robaxin and Motrin Pt reports body aches, restless legs, and headache. PRN Robaxin and Motrin administered.
--- NOTE | 2016-05-20 10:55 | NUR ---
PRN Motrin and Robaxin reassessment PRN Motrin and Robaxin effective. Pt reports relief of head ache and decreased body aches. He continues to have restless legs.
[2016-05-20] MEDS: LIDOCAINE 5% PATCH TD SCH (11:55)
[2016-05-20 12:00] VITALS: BP 102/68
[2016-05-20] MEDS ORDERED: GABAPENTIN 400 MG CAPSULE PO SCH (15:00)
[2016-05-20] MEDS: GABAPENTIN 300 MG CAPSULE PO SCH ×2 (15:29→21:33)
[2016-05-20 16:00] VITALS: BP 102/68
[2016-05-20 20:00] VITALS: BP 117/84
--- NOTE | 2016-05-20 20:00 | NUR ---
START OF SHIFT Received 26 year old male patient admitted on 05/15/16 for Heroin, Xanax and ETOH dependency. Pt is full code with allergy to beer and naloxone. Pt reports PMHx of I&D from abcess 2 weeks ago on left arm., cracked disc on neck (1 year ago), Hepatits C, Anxiety and Depression. He reports using Heroin 3 gram IV for 1 month and 3 weeks. Last dose was 3 gram on 05/13/16. Xanax 6-10 mg daily ( snort/PO) for 1 month and 3 weeks. Last dose was 8 mg on 05/14/16. And ETOH (vodka) occasional use. Last drank 2 weeks ago. Pt placed on 5 day Ativan and 5 day Subutex taper started on 05/16/16 and tolerating well. Per endorsement, pt received PRN Robaxin and Motrin. Pt is alert and oriented x4, breathing is even and unlabored, safety measures in place. Will continue to monitor.
--- NOTE | 2016-05-20 20:30 | NUR ---
END OF SHIFT Report provided to day shift nurse. Pt is in his room watching TV.. He is a 26 yo male admitted to [facility] on 05/15 for Opiate and BZD dependence. He is A&O x4 and ambulatory. Allergies to bees and naloxone, full code status, and on a regular diet. He has a [facility] hepatitis C, fractured disc of the neck, I&D of left arm abscess 2 weeks ago, anxiety, and depression. On admission he admitted to using heroin IV 3 grams per day, xanax 6-10mg per day, and occasional vodka use. He is ordered a 5 day subutex and Ativan taper. He has topical abx for abscess site. Lidocaine patch ordered for neck pain. PRN Motrin and Robaxin administered. He experienced anxiety, chills, and body aches. Last COWS 4 and CIWA 3. Fall and seizure precautions in place. Bed is down with call light in reach.
[2016-05-20] MEDS: QUETIAPINE FUMARATE 100 MG TABLET PO SCH (21:34)
[2016-05-21] VITALS: BP 108/62
--- NOTE | 2016-05-21 04:03 | NUR ---
VITALS Pt refused 399 vitals. Pt stated " no, I want to sleep." Breathing is even and unlabored,respirations 16. Safety measures in place. Will continue to monitor. Addendum: 05/21/16 at 0405 by GUIDO ANGULO RN Amended: Links added.
--- NOTE | 2016-05-21 06:59 | NUR ---
END OF SHIFT Pt remained stable and had uneventful night. Pt did not receive or request PRN medications during shift. Pt complained of restless legs and body aches related to withdrawal. Medications effective as evidenced by last COWS:2, CIWA:2 at 0400. He slept a total of 6 hrs, Intake:651 mL Void: x1 BM:0 . Breathing is even and unlabored. Pt safe with bed locked in lowest position, side rails up x2 and call light within reach. Endorsed to oncoming nurse.
--- NOTE | 2016-05-21 07:00 | NUR ---
Start of Shift Notes: Received patient in his room. Alert and oriented x 4. Verbally responsive. Appears anxious and tremulous at this time. Able to make his needs known. Respirations even and unlabored. No SOB noted. Skin warm and dry to touch. Dressing to left upper forearm intact and clean. Abdomen soft and non-distended. BS (+) in all 4 quadrants. No complains of N/V/D or constipation noted. Bladder non-distended. No complains of dysuria noted. Voids independently. Ambulatory ad marya with steady gait. Patient is a 26 year old male admitted for opiate/BZO and ETOh dependence who was placed on a 5-day Ativan taper as ordered and 5-day Subutex taper as ordered. No adverse reactions noted. Has past medical hx of Hep C, anxiety, depression. Allergic to Naloxone. FULL CODE. Regular diet. On fall and seizure precautions. Educated patient on the current plan of care for the day and the medication regimen. Encouraged oral fluid intake and encouraged group participation to learn new skills to prevent relapse. Will continue to monitor closely.
[2016-05-21 08:00] VITALS: BP 100/62
[2016-05-21] MEDS: BACITRACIN/POLYMYXIN B OINT 15 GM TUBE TOP SCH ×2 (08:59→20:55)
[2016-05-21] MEDS: LIDOCAINE 5% PATCH TD SCH (08:59)
[2016-05-21] MEDS: DOCUSATE SODIUM 250 MG CAPSULE PO SCH (08:59)
[2016-05-21] MEDS: CLONIDINE HCL 0.1 MG TABLET PO SCH ×4 (08:59→20:55)
[2016-05-21] MEDS: FOLIC ACID 1 MG TABLET PO SCH (08:59)
[2016-05-21] MEDS: GABAPENTIN 300 MG CAPSULE PO SCH ×3 (08:59→20:55)
[2016-05-21] MEDS: MULTIVITAMINS,THERAPEUTIC TABLET PO SCH (08:59)
[2016-05-21] MEDS: THIAMINE HCL 100 MG TABLET PO SCH (08:59)
[2016-05-21] MEDS: buPROPion XL 150 MG TAB.SR.24H PO SCH (08:59)
[2016-05-21] MEDS: FLUTICASONE PROP NASAL SPRAY 16 GM BOTTLE NS SCH ×2 (09:00→17:00)
--- NOTE | 2016-05-21 09:00 | NUR ---
Wound Care: Wound care done to left upper forearm. Cleansed area with NS, applied double ATB ointment and covered with DD. Good handwashing observed. Educated on the s/s of infection. Patient verbalized understanding.
[2016-05-21 12:00] VITALS: BP 111/62
--- NOTE | 2016-05-21 13:00 | NUR ---
Wound pic taken: Wound pick taken for discharged. Wound care provided.
[2016-05-21 13:08] LABS: *AMPHETAMINE, URINE NEGATIVE (NEGATIVE); *BARBITURATE, URINE NEGATIVE (NEGATIVE); *CANNABINOID, URINE NEGATIVE (NEGATIVE); *COCCAINE, URINE NEGATIVE (NEGATIVE); *OPIATE, URINE NEGATIVE (NEGATIVE); *PHENCYCLIDINE SCREEN,URINE NEGATIVE (NEGATIVE)
[2016-05-21] MEDS ORDERED: METH-33 PO (14:23)
[2016-05-21] MEDS ORDERED: DICY20TA28 PO (14:23)
[2016-05-21] MEDS ORDERED: LIDO30AD10 TD (14:23)
[2016-05-21] MEDS ORDERED: HYDR-3895 PO (14:23)
[2016-05-21 16:00] VITALS: BP 103/54
--- NOTE | 2016-05-21 18:37 | NUR ---
End of Shift Notes: Patient is a 26 year old male admitted for opiate and BZO dependence who was placed on a 5-day Ativan and 5-day Subutex taper as ordered. No adverse reactions noted. Patient completed the taper and tolerated well. Has past medical hx of I&D on left arm 2 weeks prior to admission, cracked cervical disk, Hep C, anxiety and depression. Regular diet. FULL CODE. Allergic to Bees and Naloxone. Prior to admission, patient was using 3 grams of Heroin IV, Xanax 6 to 10 mg PO or snorted and occasional Vodka 1 pint. VS monitored closely q 4 hours. No significant abnormalities noted. Withdrawal symptoms were closely monitored. Patient presented with anxiety and mild bone aches. Initial COWS 2, CIWA 2. Last COWS 2 /, CIWA 1. Per patient, Subutex and Ativan has been helping him with his withdrawal symptoms. Patient requires encouragement to participate in group and activities. Labs reviewed. Seen and examined by Dr. Gonzalez with [facility]. Continue tx to left upper arm s/p I&D site. Tolerated well. Educated patient on the s.s of infection and good handwashing. All needs met and attended. Will continue to monitor closely.
--- NOTE | 2016-05-21 19:15 | NUR ---
START OF SHIFT Received 26 year old male patient admitted on 05/15/16 for Heroin, Xanax and ETOH dependency. Pt is full code with allergy to beer and naloxone. Pt reports PMHx of I&D from [facility] 2 weeks ago on left arm, cracked disc on neck (1 year ago), Hepatitis C, Anxiety and Depression. Pt completed 5 day Ativan and 5 day Subutex taper started on 05/16/16 and tolerated well. Per endorsement, he is scheduled to be DC tomorrow 05/22/16 to [facility]. Pt did not receive or request PRN medications. Pt is alert and oriented x4, breathing is even and unlabored, safety measures in place. Will continue to monitor.
[2016-05-21 20:00] VITALS: BP 120/65
[2016-05-21] MEDS: QUETIAPINE FUMARATE 100 MG TABLET PO SCH (20:55)
--- NOTE | 2016-05-21 22:30 | NUR ---
ENDORSED Pt care endorsed to Vicki Fraser RN.
--- NOTE | 2016-05-21 22:31 | NUR ---
ENDORSEMENT RECEIVED received pt from Jana Barker RN. All pertinent information discussed. Pt currently in bed, reports fatigue and ready to sleep. All needs attended.
[2016-05-22] VITALS: BP 101/47
--- NOTE | 2016-05-22 04:00 | NUR ---
VS, COWS, CIWA Pt refused VS assessment. Pt educated on importance of taking and recording VS, but still refused. CIWA and COWS deferred d/t MD order to "while awake". Pt restig calmly, RR 16 breaths per minute. Side rails up x 2, call light within reach, bed locked in lowest position Addendum: 05/22/16 at 0550 by SEAN SIERRA RN Amended: Links added.
--- NOTE | 2016-05-22 07:39 | NUR ---
Start of shift note; Received report from night nurse.Patient is currently resting with eyes closed, respirations even and unlabored. Patient is 26 y/o male admitted on 05/15/16 for Opiate/Benzo dependence. Patient started using Heroin when he was 20 y/o, he recently relapsed 1 month and 3 weeks ago and started using Heroin 3 G/daily IV last used 05/13/16 3 G. Patient started using Xanax when he was 16 y/o, recently relapsed and started using 6mg-10mg Po/Snort last used 05/14/16 8mg. Patient also reported drinking ETOH (Vodka) on occasional basis only last drank 2 weeks ago. Discussed medical and psych history. Patient reported history of Hepatitis C, Cracked disc on his neck and recent outpatient I&D procedure for his left arm abscess, anxiety and depression. Patient was placed on 5 day Subutex and 5 day Ativan taper,completed taper without any adverse reactions noted. Patient is medically cleared for discharge today. All safety measures secured. Will continue to monitor patient.
--- NOTE | 2016-05-22 07:41 | NUR ---
END OF SHIFT NOTE Pt is 26 y o male, admitted on for heroin, Xanax and ETOH dependence. Pt has completed 5 day Ativan, 5 day Subutex tapers and scheduled for discharge on 05/23/15. Discharge orders in chart, UDT completed and results placed in chart. VSS throughout the shift. No prns were given. Last COWS 2, CIWA 1 at 0000. Pt refused VS at 0400, states "I need to sleep before leaving". Pt slept for 5 hrs. Currently pt asleep, RR unlabored. Fall and seizure precautions in place. Report endorsed to day shift nurse
[2016-05-22 08:00] VITALS: BP 92/60
[2016-05-22] MEDS: FOLIC ACID 1 MG TABLET PO SCH (08:31)
[2016-05-22] MEDS: MULTIVITAMINS,THERAPEUTIC TABLET PO SCH (08:31)
[2016-05-22] MEDS: GABAPENTIN 300 MG CAPSULE PO SCH (08:31)
[2016-05-22] MEDS: buPROPion XL 150 MG TAB.SR.24H PO SCH ×2 (08:31→08:35)
[2016-05-22] MEDS: THIAMINE HCL 100 MG TABLET PO SCH (08:31)
[2016-05-22] MEDS: DOCUSATE SODIUM 250 MG CAPSULE PO SCH (08:31)
[2016-05-22] MEDS: BACITRACIN/POLYMYXIN B OINT 15 GM TUBE TOP SCH (08:32)
[2016-05-22] MEDS: FLUTICASONE PROP NASAL SPRAY 16 GM BOTTLE NS SCH (08:32)
[2016-05-22] MEDS: CLONIDINE HCL 0.1 MG TABLET PO SCH (08:35)
[2016-05-22] MEDS: LIDOCAINE 5% PATCH TD SCH (08:35)
--- NOTE | 2016-05-22 10:35 | NUR ---
Discharge note; Patient is AOX4. All patient's belongings, valuables,medications and prescriptions given to patient. Patient completed treatment plan without any adverse reactions. Patient left the hospital at exactly 1035 on 05/22/16, patient remained in a stable condition. Met all needs.
[2016-05-24 10:12] LABS: *CODEINE Positive (.); *HYDROMORPHONE Negative (Cutoff=300); *OPIATES Positive ng/mL (Cutoff=300)
== END 2016-05-22 10:35 | DRG 895 ==
LOC: SRC 16:39
PROVIDERS: ADMIT Internal Medicine; ATTEND Internal Medicine
PROC: HZ2ZZZZ Detoxification Services for Substance Abuse Treatment (ICD-10-PCS; principal; 2016-05-15)
PROC: HZ41ZZZ Group Counseling for Substance Abuse Treatment, Behavioral (ICD-10-PCS; 2016-05-16)
DX: F11.23 Opioid dependence with withdrawal (principal); L02.414 Cutaneous abscess of left upper limb; G89.21 Chronic pain due to trauma; F13.230 Sedative, hypnotic or anxiolytic dependence with withdrawal, uncomplicated; S12.400S Unspecified displaced fracture of fifth cervical vertebra, sequela; X58.XXXS Exposure to other specified factors, sequela; M54.10 Radiculopathy, site unspecified; F13.239 Sedative, hypnotic or anxiolytic dependence with withdrawal, unspecified; F17.210 Nicotine dependence, cigarettes, uncomplicated; F10.239 Alcohol dependence with withdrawal, unspecified
CPT/HCPCS: 36415; 70030-TC; 80307; 80361; 83735; 84100; 84443; 85025; 86580; 86592; 86705; 86803; 87340; 87806; G6040-TC; J3535; Q0162

== ENCOUNTER 2016-08-25 16:05 | Inpatient (IN) | payer BC, OTHER ==
[~2016-08-25] VITALS: Ht 182.9 cm; Wt 68.0 kg
[~2016-08-25 16:05] MED LIST changes: -Amox Tr/Potassium Clavulanate PO; +BUPR-51 PO; +DICY20TA28 PO; +HYDR-3895 PO; -IBUP-1482 PO; +IBUP-1957 PO; +LIDO30AD10 TD; +METH-33 PO; +NICO-463 BC; -NICO4LOZ BC
--- NOTE | 2016-08-25 21:30 | NUR ---
Pre-admission assessment Patient is a 26-year old, male, seen at intake, AAOx4, no SOB and no anxiety noted at this time. Discussed with patient admission policies of the unit. Patient is coherent and able to respond to questions appropriately. Patient reported that he and his partner live in cars, hotels and friends' places for the past month. Pt is ambulatory with steady gait. Pt reports that he left a sober living facility about a month ago, and has been using these substance daily: Heroin 1.5 to 2 gms IV and Xanax 6-10 mg PO. Vital signs taken and as follows: IT=031/67, P=92, O2 sat on RA=97%, RR=16, T=97.4. Pt verbalized instructions and teachings regarding disposal of narcotic and other controlled home meds, unit protocols such as taking of vital signs Q4H and handling and disposal of contraband.
[2016-08-25] MEDS ORDERED: MAGNESIUM HYDROXIDE 30 ML LIQUID UDC PO PRN (22:30)
[2016-08-25] MEDS ORDERED: ONDANSETRON ODT 4 MG TAB.RAPDIS SL PRN (22:30)
[2016-08-25] MEDS ORDERED: LOPERAMIDE HCL 2 MG CAPSULE PO PRN ×2 (22:30)
[2016-08-25] MEDS ORDERED: CLONIDINE HCL 0.1 MG TABLET PO PRN (22:30)
[2016-08-25] MEDS ORDERED: LORAZEPAM 1 MG TABLET PO ONE (22:30)
[2016-08-25] MEDS ORDERED: BUPRENORPHINE HCL 2 MG TAB.SUBL SL ONE ×2 (22:30→23:26)
[2016-08-25] MEDS ORDERED: BUPRENORPHINE HCL 2 MG TAB.SUBL SL PRN (22:30)
[2016-08-25] MEDS ORDERED: diphenhydrAMINE 50 MG CAPSULE PO PRN (22:30)
[2016-08-25] MEDS ORDERED: ONDANSETRON 4 MG/2 ML VIAL IM PRN (22:30)
[2016-08-25] MEDS ORDERED: ACETAMINOPHEN 325 MG TABLET PO PRN (22:30)
[2016-08-25] MEDS ORDERED: GABAPENTIN 400 MG CAPSULE PO ONE (22:30)
[2016-08-25] MEDS ORDERED: IBUPROFEN 600 MG TABLET PO PRN (22:30)
[2016-08-25] MEDS ORDERED: LORAZEPAM 1 MG TABLET PO PRN ×2 (22:30)
[2016-08-25] MEDS ORDERED: MAG HYDROX/AL HYDROX/SIMETH 30 ML LIQUID UDC PO PRN (22:30)
[2016-08-25] MEDS ORDERED: MIRALAX 17 GM POWD.PACK PO PRN (22:30)
[2016-08-25] MEDS ORDERED: HYDROXYZINE PAMOATE 25 MG CAPSULE PO PRN (22:30)
[2016-08-25] MEDS ORDERED: LORAZEPAM 2 MG/1 ML VIAL IM PRN (22:30)
[2016-08-25] MEDS ORDERED: DICYCLOMINE HCL 20 MG TABLET PO PRN (22:30)
--- NOTE | 2016-08-25 22:45 | NUR ---
ADMISSION Patient is a 26-year old, male, admitted and escorted by [facility] at 2235 to unit. Patient verbalized that he lives with his partner in hotels, cars and friends' places for the past month . Skin check done, no open skin noted. Patient denies Suicidal Ideation nor Homicidal Ideation. No edema noted. Pt is ambulatory with steady gait. Pt stands 6'0" and weighs 150 pounds per bed scale. Vital signs are as follows: BP-104/67, T-97.4, P-92, RR-16 and SPO2 on RA=97%. Patient is AAOx4 and with no anxiety noted at this time. Lung sounds clear bilaterally upon auscultation. No cough noted and bowel sounds are present on all quadrants. PERRLA and pupils are 2 mm upon visual check. Pt reports being allergic to bees and naloxone, on Regular Diet and is Full Code. Pt denies history of seizures. Per pt, withdrawal symptoms are cold sweats, restless legs, generalized body ache, nausea. diarrhea, mental cravings. sensitivity to light and sound, anxiety and irritability. Pt reports that he relapsed about a month ago after leaving a sober living facility and has been using these substance daily: 1) Heroin 1.5 to 2 gms IV daily, last use was 08/24/2016 1700, 1.5 gms IV. 2) Xanax 6-10 mg PO daily, last use was 08/24/2016 1700, 6 mg PO. Patient verbalized the she does not take other substances besides the one mentioned above. Patient informed PMHx of Anxiety, Depression and Hepatitis C. Home medications are reconciled. No PCP nor Psych MD as of the moment. Patient reports smoking cigarettes, about 1 1/2 pack daily. Oriented patient to room and instructed with the use of the call light, placed within reach. Fall, universal, seizure and safety precautions implemented. No c/o significant pain at this time. All needs met. Information relayed to Dr. Garcia. Patient refused PNA vaccine and Flu vaccine is out of season. COWS=8, CIWA=8. Will continue to monitor.
[2016-08-25 22:58] LABS: *AMPHETAMINE, URINE NEGATIVE (NEGATIVE); *BARBITURATE, URINE POSITIVE (NEGATIVE); *CANNABINOID, URINE NEGATIVE (NEGATIVE); *COCCAINE, URINE NEGATIVE (NEGATIVE); *OPIATE, URINE POSITIVE (NEGATIVE); *PHENCYCLIDINE SCREEN,URINE NEGATIVE (NEGATIVE)
[2016-08-25 23:09] LABS: ETHANOL < 3 MG/DL (0-0)
[2016-08-25 23:10] LABS: BASOPHILS % (AUTO) 0.5 % (0.0-2.0); EOSINOPHILS # (AUTO) 0.3 K/uL (0.0-0.7); EOSINOPHILS % (AUTO) 3.1 % (0.0-7.0); HEMATOCRIT 42.8 % (40-50); HEMOGLOBIN 14.3 G/DL (14.0-18.0); LYMPHOCYTES # (AUTO) 3.3 K/UL (0.8-4.8); LYMPHOCYTES % (AUTO) 38.3 % (20.5-51.5); MEAN CORPUSCULAR HEMOGLOBIN 30.8 UUG (27.0-31.0); MEAN CORPUSCULAR HGB CONC 33 g/dL (32.0-37.0); MEAN CORPUSCULAR VOLUME 92.4 FL (82.0-92.0); MONOCYTES # (AUTO) 0.8 K/UL (0.1-1.30); MONOCYTES % (AUTO) 9.4 % (0.0-11.0); NEUTROPHILS # (AUTO) 4.2 K/UL (1.8-8.9); NEUTROPHILS % (AUTO) 48.7 % (38.5-71.5); PLATELET COUNT (AUTO) 248 K/UL (150-450); RED BLOOD CELL COUNT(AUTO) 4.63 MIL/UL (4.7-6.1); WHITE BLOOD COUNT (AUTO) 8.6 K/UL (4.0-11.2)
[2016-08-25 23:22] VITALS: BP 104/67
[2016-08-25 23:22] LABS: ALANINE AMINOTRANSFERASE 32 U/L (16-63); ALKALINE PHOSPHATASE 89 U/L (50-136); ASPARTATE AMINOTRANSFERASE 26 U/L (15-37); BILIRUBIN,TOTAL 0.4 mg/dL (0.2-1.0); CARBON DIOXIDE 33 mmol/L (21-32); CHLORIDE 102 mmol/L (98-107); CREATININE 0.9 mg/dL (0.6-1.3); GLUCOSE 75 mg/dL (74-106); MAGNESIUM 1.9 mg/dL (1.8-2.4); POTASSIUM 3.9 mmol/L (3.5-5.1); TOTAL PROTEIN, SERUM 7.6 g/dL (6.4-8.2); UREA NITROGEN, BLOOD 11 mg/dL (7-18)
[2016-08-25 23:25] LABS: THYROID STIMULATING HORMONE 0.751 mIU/mL (0.358-3.740)
[2016-08-25] MEDS ORDERED: LORAZEPAM 1 MG TABLET ONE (23:26)
[2016-08-25] MEDS ORDERED: GABAPENTIN 400 MG CAPSULE ONE (23:26)
[2016-08-25] MEDS: METHOCARBAMOL 750 MG TABLET PO PRN (23:29)
--- NOTE | 2016-08-25 23:29 | NUR ---
RN note PRN Robaxin Pt c/o generalized muscle pain=6/10. Administered Robaxin 750 mg PO as ordered. Will reassess.
[2016-08-25] MEDS ORDERED: METHOCARBAMOL 750 MG TABLET ONE (23:37)
[2016-08-26] VITALS (7 sets, daily range): BP systolic 100–127; BP diastolic 52–83
--- NOTE | 2016-08-26 00:35 | NUR ---
RN note reassess Pt asleep on bed, with no SOB nor facial grimacing noted.
--- NOTE | 2016-08-26 07:23 | NUR ---
Emd of Shift Patient is a 26-year old, male, admitted for Opiate and Xanax Dependence. Pt is Full Code, on Regular Diet and is allergic to bees and Naloxone. Pt with history of Hep C, Anxiety and Depression. On PRN Ativan and Subutex. Dr. Garcia to re-evaluate patient this morning. Pt is AAOx4 and with no SOB nor anxiety noted at this time. Pt is ambulatory and with steady gait. No skin issues. Fall, universal, seizure and safety prec in place. Call light within reach. Latest COWS=5, CIWA=4, slept for 6 hours. Endorsed to AM shift nurse for continuity of care.
--- NOTE | 2016-08-26 07:37 | NUR ---
Start of shift note; Received report from night nurse. Patient is a 26 year male admitted on 08/25/16 for Opiate and Benzo withdrawals. Patient to start 5 day Ativan and 5 day Subutex taper today. Patient reported history of hepatitis C, anxiety and depression. Patient's last COWS score is 5 and last CIWA score is 4 at 0400. Patient is on fall and seizure precaution. Will continue to monitor patient.
[2016-08-26] MEDS ORDERED: TUBERCULIN,PURIF.PROT.DERIV. 5 TU/0.1 ML TEST ID ONE (09:00)
[2016-08-26] MEDS: BUPRENORPHINE HCL 2 MG TAB.SUBL SL SCH ×4 (09:00→20:48)
[2016-08-26] MEDS: LORAZEPAM 1 MG TABLET PO SCH ×4 (09:00→20:48)
[2016-08-26] MEDS: GABAPENTIN 400 MG CAPSULE PO SCH ×3 (09:00→20:48)
[2016-08-26] MEDS: MULTIVITAMINS,THERAPEUTIC TABLET PO SCH (09:00)
[2016-08-26] MEDS: buPROPion XL 150 MG TAB.SR.24H PO SCH (17:22)
[2016-08-26] MEDS ORDERED: QUETIAPINE FUMARATE 100 MG TABLET PO SCH (18:00)
--- NOTE | 2016-08-26 18:12 | NUR ---
End of shift note; Patient is AOX4. Patient was started on Subutex and Ativan taper, no adverse reactions noted. Patient remained compliant with treatment plan and medication regime. Medications were effective in reducing withdrawal symptoms. Patient is on fall and seizure precaution. Met all needs.
--- NOTE | 2016-08-26 19:55 | NUR ---
START OF SHIFT Received report from day shift nurse. Pt is in his room resting. He is a 26 yo male admitted to [facility] on 08/25 for opiate and BZD dependence. He is A&Ox 4 and ambulatory. Allergies to bees and naloxone. He has a PMH of hepatitis C, anxiety, and depression. On admission he reported using heroin 1.5-2 grams per day and Xanax 6-10mg per day. 5 day Ativan and 5 day Subutex taper started today. He reports chills, stomach cramps, body aches. He is observed to have moist skin, facial flushing, and restless legs. Tapers due tonight. Fall and seizure precautions in place. Bed is down with call light in reach.
[2016-08-26] MEDS: METHOCARBAMOL 750 MG TABLET PO PRN (20:48)
--- NOTE | 2016-08-26 20:50 | NUR ---
PRN Robaxin Pt reports back, legs, and generalized body aches 09/24. He is observed to have restless legs. PRN Robaxin administered.
--- NOTE | 2016-08-26 21:50 | NUR ---
PRN Robaxin reassessment PRN Robaxin somewhat effective. Pt reports body aches reduced to 5/10. No further medications requested at this time.
[2016-08-26] MEDS: QUETIAPINE FUMARATE 100 MG TABLET PO SCH (23:13)
--- NOTE | 2016-08-26 23:15 | NUR ---
PRN Clonidine and Robaxin Pt reports chills, skin crawling, and anxiety. He cannot keeps his legs still while lying in bed. PRN Clonidine and Robaxin administered. Addendum: 08/27/16 at 0155 by RICHA GARCÍA RN KOKO Garcia and CHASE 6.
[2016-08-27 00:15] VITALS: BP 120/71
--- NOTE | 2016-08-27 00:15 | NUR ---
PRN Clonidine and Robaxin reassessment PRN Clonidine effective. Pt reports feeling less anxiety, chills, and restlessness. PRN Robaxin slightly effective. Pt reports continued body aches. COWS 8 and CIWA 5. Pt has not yet been able to fall asleep. No further medications requested at this time.
[2016-08-27 04:00] VITALS: BP 110/64
--- NOTE | 2016-08-27 04:00 | NUR ---
0400 COWS and CIWA deferred COWS and CIWA ordered [id number]. Pt is lying in bed resting with eyes closed. Vital signs obtained. Safety measures in place.
--- NOTE | 2016-08-27 07:07 | NUR ---
END OF SHIFT Report provided to day shift nurse. Pt is lying in bed resting. He is a 26 yo male admitted to [facility] on 08/25 for opiate and BZD dependence. He is A&O and ambulatory. Allergic to bees and naloxone. He has a PMH of hepatitis C, anxiety, and depression. On admission he reported using heroin 1.5-2 grams per day and Xanax 6-10mg per day. 5 day Ativan and 5 day Subutex tapers were started yesterday. Pt reported continuing body aches. PRN Robaxin, Clonidine, and Motrin administered. Last COWS 8 and CIWA 5. He drank 946mL and slept for 5 hours. Fall and seizure precautions in place. Bed is down with call light in reach.
--- NOTE | 2016-08-27 07:53 | NUR ---
START OF SHIFT NOTE Received patient this AM Aox4. Patient presents fatigued and states he is experiencing cold sweats, body aches, and the light is bothering him. He reports sleeping okay. He is on a 5 Day Ativan/ 5 Day Subutex taper. PRN Clonidine, Robaxin, and Motrin given per night nurse. He slept 5 hours. Last COWS 8 CIWA 5 per maintenance technician 3rd shift. Encouraged patient to increase fluid intake to facilitate detox. Encouraged attendance of groups and activities. Will provide safe and supportive environment. Will continue to monitor.
[2016-08-27 08:00] VITALS: BP 95/67
[2016-08-27] MEDS: buPROPion XL 150 MG TAB.SR.24H PO SCH (08:34)
[2016-08-27] MEDS: MULTIVITAMINS,THERAPEUTIC TABLET PO SCH (08:34)
[2016-08-27] MEDS: GABAPENTIN 400 MG CAPSULE PO SCH ×3 (08:34→20:43)
[2016-08-27] MEDS: LORAZEPAM 1 MG TABLET PO SCH ×3 (08:34→20:43)
[2016-08-27] MEDS: BUPRENORPHINE HCL 2 MG TAB.SUBL SL SCH ×3 (08:34→20:44)
[2016-08-27] MEDS ORDERED: KETOROLAC TROMETHAMINE 30 MG INJ IM PRN (11:15)
[2016-08-27 12:00] VITALS: BP 122/75
[2016-08-27] MEDS ORDERED: HYDROXYZINE PAMOATE 25 MG CAPSULE PO PRN (14:00)
[2016-08-27] MEDS: DICYCLOMINE HCL 20 MG TABLET PO SCH ×2 (14:06→20:43)
[2016-08-27] MEDS: BACLOFEN 10 MG TABLET PO SCH ×2 (14:06→20:43)
[2016-08-27 14:08] LABS: HEPATITIS B SURFACE AG Negative (Negative)
[2016-08-27 16:00] VITALS: BP 123/78
--- NOTE | 2016-08-27 16:51 | NUR ---
PATIENT PLACED ON ISOLATION CONTACT PRECAUTIONS FOR POSITIVE MRSA SWAB OF NARES. PATIENT GIVEN EDUCATIONAL HANDOUTS AND PATIENT VERBALIZED UNDERSTANDING.
[2016-08-27] MEDS ORDERED: buPROPion XL 150 MG TAB.SR.24H PO ONE (17:15)
--- NOTE | 2016-08-27 17:15 | NUR ---
MD communication Pt states that he takes 300mg of wellbutrin daily and that he would like an extra dose now. Dr Chilel notified, ordered 150mg wellbutrin PO x 1 now, and 300mg PO Daily. Orders entered, unable to enter orders.
--- NOTE | 2016-08-27 18:33 | NUR ---
END OF SHIFT NOTE Patient continues on 5 day Ativan/5 day Subutex taper and tolerating well. No PRNs given during shift as detox meds are effective. Patient on contact precautions for positive MRSA swab of nares. Patient given education regarding MRSA. Patient socialized with peers during shift and attended groups and activities. Last CIWA 5. Patient reports feeling "sick." Vital signs WNL. All needs met. All safety measures in place. WIll endorse to night club manager.
[2016-08-27 20:00] VITALS: BP 113/83
--- NOTE | 2016-08-27 20:00 | NUR ---
START OF SHIFT NOTE PATIENT ALERT AND ORIENTED X 4. PATIENT REPORTS ANXIETY, HOT AND COLD SWEATS, GENERALIZED BODY ACHES AND RESTLESS LEGS /, NO N/V, STUFFY NOSE, STOMACH CRAMPS AND TREMORS NOT OBSERVED BUT FELT.RECEIVED REPORT FROM DAY SHIFT NURSE. PATIENT IS A 26 YEAR OLD MALE, ADMITTED FOR OPIATE/BENZO DEPENDENCE. PATIENT IS ON 2ND DAY OF HIS 5 DAY ATIVAN AND 5 DAY SUBUTEX TAPER. PATIENT IS FULL CODE, REGULAR DIET AND ALLERGIC TO BEES AND NALOXONE. UPON ADMISSION, PATIENT REPORTED USING HEROIN 1.5-2 GRAM IV FOR 4 WEEKS AND XANAX 6-10 MG FOR 4 WEEKS. PATIENT REPORT PMH OF HEP C+, ANXIETY AND DEPRESSION. NO SEIZURE HISTORY. SKIN INTACT. PATIENT IS POSITIVE FOR MRSA ON NARES. ON CONTACT ISOLATION. PATIENT DID NOT REQUIRE ANY PRN MEDICATION. LAST COWS 11 AND CIWA 5. ON FALL PRECAUTION. SAFETY MEASURES IN PLACE. CALL LIGHT IN REACH. WILL CONTINUE TO MONITOR.
[2016-08-27] MEDS: QUETIAPINE FUMARATE 100 MG TABLET PO SCH (20:43)
[2016-08-27] MEDS: METHOCARBAMOL 750 MG TABLET PO PRN (20:44)
--- NOTE | 2016-08-27 20:44 | NUR ---
PRN ROBAXIN ADMINISTRATION PATIENT C/O RESTLESS LEGS AND GENERALIZED BODY ACHES 09/24. PRN ROBAXIN GIVEN. WILL MONITOR FOR EFFECTIVENESS
--- NOTE | 2016-08-27 21:44 | NUR ---
PRN ROBAXIN RE-ASSESSMENT PATIENT STATES ROBAXIN IS HELPFUL , PAIN LEVEL 2/10 AT THIS TIME. WILL CONTINUE TO MONITOR.
[2016-08-28] VITALS: BP 106/66
--- NOTE | 2016-08-28 07:15 | NUR ---
END OF SHIFT NOTE PATIENT REMAIN ALERT AND ORIENTED X 4. PATIENT REPORTED ANXIETY, HOT AND COLD SWEATS, GENERALIZED BODY ACHES AND RESTLESS LEGS 09/24, NO N/V, STUFFY NOSE, STOMACH CRAMPS AND TREMORS NOT OBSERVED BUT FELT DURING SHIFT. PATIENT IS A 26 YEAR OLD MALE, ADMITTED FOR OPIATE/BENZO DEPENDENCE. PATIENT IS ON 2ND DAY OF HIS 5 DAY ATIVAN AND 5 DAY SUBUTEX TAPER, TOLERATED WELL. NO ADVERSE REACTION. PATIENT IS FULL CODE, REGULAR DIET AND ALLERGIC TO BEES AND NALOXONE. UPON ADMISSION, PATIENT REPORTED USING HEROIN 1.5-2 GRAM IV FOR 4 WEEKS AND XANAX 6-10 MG FOR 4 WEEKS. PATIENT REPORT PMH OF HEP C+, ANXIETY AND DEPRESSION. NO SEIZURE HISTORY. SKIN INTACT. PATIENT IS POSITIVE FOR MRSA ON NARES. ON CONTACT ISOLATION. PATIENT COMPLIANT WITH MEDICATIONS AND TREATMENT PLAN. PATIENT WAS GIVEN PRN ROBAXIN AT 2043. ON FALL PRECAUTION. SAFETY MEASURES IN PLACE. CALL LIGHT IN REACH. WILL CONTINUE TO MONITOR. SLEPT 6 HOURS .FLUID INTAKE 1,861 ML. VOIDED X 2 . NO BM. LAST COWS 2 AND CIWA 2 .
--- NOTE | 2016-08-28 08:17 | NUR ---
Start of Shift Presser Automatic receives pt from [facility] shift after report given. Pt is a 26 year old male admitted on 08/25/16 for Heroin and Xanax detoxification. Pt has an allergy to bees and naloxone, is full code and regular diet. Pt is currently on a 5 day Ativan and % day Subutex taper. Pt is on fall, universal and contact precautions. Contact precautions for a positive MRSA swab of the nares. Pt has a PMH of Hep C, anxiety and depression. Pt with no history of seizures. Pts last COWS of 2 and CIWA of 2 were recroded at 0000. Pt received a PRN of Robaxin last eveing and slept for 6 hours. Presser Automatic encounters pt in the hallway, A/O x4, with moderate withdrawal symptoms, to include, tremors, body aches, stuffy nose, chills and sweats. Will medication according to MD orders. Pt has a flat affect, with a congruent mood. Bed in low position, wheels locked with side rails up x2. Call light within reach and all safety measures in place. Will continue to monitor, support and encourage according to plan of care.
[2016-08-28 08:18] VITALS: BP 119/75
[2016-08-28] MEDS ORDERED: BUPRENORPHINE HCL 2 MG TAB.SUBL SL SCH (09:00)
[2016-08-28] MEDS: GABAPENTIN 400 MG CAPSULE PO SCH (09:36)
[2016-08-28] MEDS: buPROPion XL 150 MG TAB.SR.24H PO SCH (09:36)
[2016-08-28] MEDS: MULTIVITAMINS,THERAPEUTIC TABLET PO SCH (09:36)
[2016-08-28] MEDS: LORAZEPAM 1 MG TABLET PO SCH ×4 (09:36→21:10)
[2016-08-28] MEDS: DICYCLOMINE HCL 20 MG TABLET PO SCH ×3 (09:36→21:10)
[2016-08-28] MEDS: BACLOFEN 10 MG TABLET PO SCH ×3 (09:36→21:11)
[2016-08-28] MEDS ORDERED: CLONIDINE HCL 0.1 MG TABLET PO ONE (10:30)
[2016-08-28] MEDS ORDERED: LORAZEPAM 1 MG TABLET PO ONE (10:30)
[2016-08-28] MEDS: MUPIROCIN 2% OINT 22 GM TUBE NS SCH ×2 (12:07→21:13)
[2016-08-28 13:00] VITALS: BP 118/77
--- NOTE | 2016-08-28 13:03 | NUR ---
OT Medication Re-assessment Pt tolerated well and pt states his anxiety is decreased after administration of OT clonidine and Ativan. BP WNL, pt social with peers and participating in groups. Will continue to monitor, support and encourage according to plan of care.
[2016-08-28] MEDS: busPIRone 5 MG TABLET PO SCH ×3 (13:20→21:10)
[2016-08-28] MEDS: BUPRENORPHINE HCL 2 MG TAB.SUBL SL SCH ×2 (15:09→21:12)
[2016-08-28 16:35] VITALS: BP 111/64
--- NOTE | 2016-08-28 19:00 | NUR ---
End of Shift Inventory Control Clerk provides report to oncoming [facility] nurse, with no further comments, questions or concerns voiced. Pt is a 26 year old male admitted on 08/25/16 for Heroin and Xanax detoxification. Pt has an allergy to bees and naloxone, is full code and regular diet. Pt is currently on a 5 day Ativan and 5 day Subutex taper. Pt is on fall, universal and contact precautions. Contact precautions for a positive MRSA swab of the nares. Pt has a PMH of Hep C, anxiety and depression. Pt with no history of seizures. Pts last COWS of 5 and CIWA of 3 were recorded at 1600. Pt did not request any PRN medication on this shift. Pt is A/O x4, pt has a flat affect, with a congruent mood. Pt is pleasant and polite, withdrawn, but social with peers and has been attending groups. Pt makes his needs known. Bed in low position, wheels locked with side rails up x2. Call light within reach and all safety measures in place.
[2016-08-28 20:00] VITALS: BP 121/75
--- NOTE | 2016-08-28 20:00 | NUR ---
1999 Patient received awake, alert and ambulating back to his room # 330, from [employer], in recreation room. Gait is brisk and steady. Patient responds to nurse's greeting and introduction with direct eye contact and a "Hi, you're my nurse tonight?" Patient is oriented to person,place, day, date, time and his personal situation. Patient's color is tannish-pink and his skin is warm, very slightly moist and intact. Patient states that he has been attending and participating in [employer] regularly and he is eating his regular diet trays and taking fluids ad marya with no gastric issues so far. Vital sign are: [id number] 121/75, O2 Sat 99%, COWS 4, CIWA 3. Patient denies any pain or other discomfort at this time and he voices no requests for anything. Patient was admitted on 08/25/16 for Heroin and Xanax withdrawal and he is currently on a 5-Day Ativan medication taper and a 5-Day Subutex medication taper, both of which he is apparently tolerating well thus far. Patient is cooperative and verbally appropriate when interacting with nurse, though his affect/mood is somewhat flat and quiet. Patient denies any pain and he voices no requests or c/o anything at this time. Bed is locked and in lowest position, bed rails are up X 1 and call light within patient's easy reach.
[2016-08-28] MEDS: CLONIDINE HCL 0.1 MG TABLET PO SCH (21:11)
[2016-08-28] MEDS: QUETIAPINE FUMARATE 100 MG TABLET PO SCH (21:23)
[2016-08-29] VITALS: BP 110/73
--- NOTE | 2016-08-29 04:00 | NUR ---
Patient refused to be awakened for V/S to be done at this time.
--- NOTE | 2016-08-29 06:30 | NUR ---
0630 Patient slept a total of 4 .5 hours and he had 2 voids and no stools. Total p.o. intake was 1,920 ml. No Prn medications given this shift. V/SS afebrile. Last COWS 3, Last CIWA 3 at 0000. Patient is presently sleeping comfortably in stable condition, with eyes closed and respirations quiet, even, unlabored at 12.
--- NOTE | 2016-08-29 07:56 | NUR ---
Start of Shift Dishwasher Busser receives pt from [facility] shift after report given. Pt is a 26 year old male admitted on 08/25/16 for Heroin and Xanax detoxification. Pt has an allergy to bees and naloxone, is full code and regular diet. Pt is currently on a 5 day Ativan and 5 day Subutex taper. Pt is on fall, universal and contact precautions. Contact precautions for a positive MRSA swab of the nares. Pt has a PMH of Hep C, anxiety and depression. Pt with no history of seizures. Pt's last COWS of 3 and CIWA of 3 were recroded at 0000. Pt did not receive any PRN during the NOC shift and slept for 4 hours. Dishwasher Busser encounters pt in bed resting with eyes closed, respirations even and unlabored. Bed in low position, wheels locked with side rails up x2. Call light within reach and all safety measures in place. Will continue to monitor, support and encourage according to plan of care.
[2016-08-29 08:19] VITALS: BP 96/56
[2016-08-29] MEDS: CLONIDINE HCL 0.1 MG TABLET PO SCH ×2 (09:00→21:36)
[2016-08-29] MEDS: MUPIROCIN 2% OINT 22 GM TUBE NS SCH ×2 (09:16→21:37)
[2016-08-29] MEDS: DICYCLOMINE HCL 20 MG TABLET PO SCH ×3 (09:17→21:35)
[2016-08-29] MEDS: BACLOFEN 10 MG TABLET PO SCH ×3 (09:17→21:36)
[2016-08-29] MEDS: LORAZEPAM 1 MG TABLET PO SCH ×3 (09:17→21:34)
[2016-08-29] MEDS: busPIRone 5 MG TABLET PO SCH ×3 (09:17→21:35)
[2016-08-29] MEDS: BUPRENORPHINE HCL 2 MG TAB.SUBL SL SCH ×3 (09:18→21:36)
[2016-08-29] MEDS: buPROPion XL 150 MG TAB.SR.24H PO SCH (09:18)
[2016-08-29] MEDS: MULTIVITAMINS,THERAPEUTIC TABLET PO SCH (09:18)
[2016-08-29 12:41] VITALS: BP 118/83
[2016-08-29 16:30] VITALS: BP 111/73
--- NOTE | 2016-08-29 19:14 | NUR ---
End of Shift Project Systems Engineer provides report to oncoming [facility] nurse, with no further comments, questions or concerns voiced. Pt is a 26 year old male admitted on 08/25/16 for Heroin and Xanax detoxification. Pt has an allergy to bees and naloxone, is full code and regular diet. Pt is currently on a 5 day Ativan and 5 day Subutex taper. Pt is on fall, universal and contact precautions. Contact precautions for a positive MRSA swab of the nares. Pt has a PMH of Hep C, anxiety and depression. Pt with no history of seizures. Pts last COWS of 3 and CIWA of 2 were recorded at 1600. Project Systems Engineer held pt's 0900 Clonidine due to low blood pressure, 96/56, MD aware. Pt did not request any PRN medication on this shift. Pt is A/O x4, pt has a flat affect, with a congruent mood. Pt is pleasant and polite, withdrawn, but social with peers and has been attending groups. Pt makes his needs known. Bed in low position, wheels locked with side rails up x2. Call light within reach and all safety measures in place.
[2016-08-29 20:00] VITALS: BP 116/64
--- NOTE | 2016-08-29 20:00 | NUR ---
1999 Patient received awake, alert and just returning to his room # 330, from [facility] in recreation room. Gait is steady. Upon seeing nurse, patient states," Hi, are you my nurse again tonight?" Patient is oriented to person, place, day, date, time and his personal situation. Patient's color is tannish-pink and his skin is warm, dry and intact. Patient denies any pain or other discomfort and he offers no requests at this time. Patient states that he continues to eat his regular diet trays and drink various fluids ad marya with no gastric issues so far. Vital signs are: 98-74-20 116/64 O2 Sat 98%, COWS 3, CIWA 2. Patient was admitted on 08/25/16 for Heroin and Xanax withdrawal and he is currently on a 5-Day Ativan medication and a 5-Day Subutex medication taper, both of which he has been apparently tolerating well thus far. Patient continues to be on Contact isolation +MRSA/nares. Patient asks nurse several questions about MRSA and simple explanations given to him within nursing scope. Patient also noted to have a MRSA information sheet given to him by his day RN (per day RN report to this nurse), for his information regarding MRSA. Patient is friendly and verbally appropriate when interacting with nurse. Bed is locked and in lowest position, bed rails are up X 1 and call light within patient's easy reach.
[2016-08-29] MEDS: QUETIAPINE FUMARATE 100 MG TABLET PO SCH (21:36)
--- NOTE | 2016-08-30 | NUR ---
Patient refused to be awakened for V/S to be done at this time.
--- NOTE | 2016-08-30 04:00 | NUR ---
0400 Patient refused to be awakened for V/S to be done at this time.
--- NOTE | 2016-08-30 06:30 | NUR ---
0630 Patient slept a total of 5 hours and he had 355 ml p.o. intake total. Voids 2 and stools none.
--- NOTE | 2016-08-30 07:15 | NUR ---
START OF SHIFT NOTE: PT IS IN STABLE CONDITION NO S/S OF PAIN OR DISCOMFORT, PT [facility] AD[facility] OPIATE/BENZO WITHDRAWAL/DEPENDENCE. PT SLEPT FOR 5 HRS. PT'S LAST COWS 2 AND CIWA 1. WILL MONITOR PT FOR ANY A/R TO MEDICATIONS AND WILL ENCOURAGE PT TO JOIN GROUPS AND ACTIVITIES.
[2016-08-30 08:07] VITALS: BP 99/60
[2016-08-30] MEDS: buPROPion XL 150 MG TAB.SR.24H PO SCH (09:41)
[2016-08-30] MEDS: CLONIDINE HCL 0.1 MG TABLET PO SCH ×2 (09:41→20:56)
[2016-08-30] MEDS: BACLOFEN 10 MG TABLET PO SCH ×3 (09:41→20:56)
[2016-08-30] MEDS: busPIRone 5 MG TABLET PO SCH ×3 (09:44→20:56)
[2016-08-30] MEDS: LORAZEPAM 1 MG TABLET PO SCH ×2 (09:44→20:56)
[2016-08-30] MEDS: MULTIVITAMINS,THERAPEUTIC TABLET PO SCH (09:44)
[2016-08-30] MEDS: DICYCLOMINE HCL 20 MG TABLET PO SCH ×3 (09:44→20:56)
[2016-08-30] MEDS: BUPRENORPHINE HCL 2 MG TAB.SUBL SL SCH ×2 (09:44→20:56)
[2016-08-30] MEDS: MUPIROCIN 2% OINT 22 GM TUBE NS SCH ×2 (09:44→21:55)
[2016-08-30 14:51] VITALS: BP 110/66
[2016-08-30 18:35] VITALS: BP 113/64
--- NOTE | 2016-08-30 18:53 | NUR ---
END OF SHIFT NOTE: PT IS ALERT, ORIENTED AND IN GOOD SPIRITS, PT IS ADMITTED TO [facility] FOR OPIATE/BENZO WITHDRAWAL/DEPENDENCE. PT WITHOUT A/R TO MEDICATIONS. PT ATTENDED ALL GROUPS AND ACTIVITIES. PT WITHOUT ANY COMPLICATIONS THROUGHOUT THE SHIFT WILL MONITOR FOR ANY CHANGES AND ENDORSE PT TO RAIL WALKER NURSE.
[2016-08-30 20:00] VITALS: BP 118/75
--- NOTE | 2016-08-30 20:00 | NUR ---
START OF SHIFT Received report from day shift nurse. Pt attended a group meeting and returned to her room after. He is a 26 yo male admitted to [facility] on 08/25 for opiate and BZD dependence. He is A&O x4 and ambulatory. Allergies to bees and naloxone, full code status, and on a regular diet. Pt is on isolations precautions for MRSA of the nares. He has a PMH of hepatitis C, anxiety, and depression, heroin 1.5-2 grams per day and Xanax 4mg per day. He started Ativan and Subutex tapers on 08/26. Pt presents with chills, anxiety, and body aches. Tapers due tonight. Fall and seizure precautions in place. Bed is down with call light in reach.
[2016-08-30] MEDS: QUETIAPINE FUMARATE 100 MG TABLET PO SCH (21:55)
[2016-08-31] VITALS: BP 101/62
[2016-08-31 04:00] VITALS: BP 94/58
--- NOTE | 2016-08-31 04:00 | NUR ---
0400 COWS and CIWA deferred COWS and CIWA ordered [id number]. Pt is lying in bed resting with eyes closed. Vital signs obtained.
--- NOTE | 2016-08-31 07:15 | NUR ---
START OF SHIFT NOTE: PT IS IN STABLE CONDITION NO S/S OF PAIN OR DISCOMFORT. PT IS ADMITTED TO [facility] FOR OPIATE/BENZO WITHDRAWAL/DEPENDENCE. PTS LAST COWS 3 AND CIWA 2. PT IS TOLERATING TAPER WELL. NO A/R NOTED. WILL CONTINUE TO MONITOR PT FOR ANY CHANGES. AND CONTINUE TO MEET PTS NEEDS
--- NOTE | 2016-08-31 07:25 | NUR ---
END OF SHIFT Report provided to day shift nurse. Pt is lying in bed resting. He is a 26 yo male admitted to [facility] on 08/25 for opiate and BZD dependence. He is A&O. Allergies to bees and naloxone, full code status, and on a regular diet. Pt is on isolations precautions for MRSA of the nares. He has a PMH of hepatitis C, anxiety, and depression, heroin 1.5-2 grams per day and Xanax 4mg per day. Pt started Ativan and Subutex tapers on 08/26. No PRN medications administered. He is compliant with treatment. Last COWS 3 and CIWA 2. He drank 1563 and slept for 8 hours. Fall and seizure precautions in place. Bed is down with call light in reach.
[2016-08-31 09:00] VITALS: BP 100/60
[2016-08-31] MEDS ORDERED: BUPRENORPHINE HCL 2 MG TAB.SUBL SL SCH (09:00)
[2016-08-31] MEDS: MUPIROCIN 2% OINT 22 GM TUBE NS SCH ×2 (09:18→21:21)
[2016-08-31] MEDS: MULTIVITAMINS,THERAPEUTIC TABLET PO SCH (09:19)
[2016-08-31] MEDS: CLONIDINE HCL 0.1 MG TABLET PO SCH ×2 (09:19→21:22)
[2016-08-31] MEDS: buPROPion XL 150 MG TAB.SR.24H PO SCH (09:19)
[2016-08-31] MEDS: BACLOFEN 10 MG TABLET PO SCH ×3 (09:19→21:23)
[2016-08-31] MEDS: busPIRone 5 MG TABLET PO SCH ×3 (09:19→21:23)
[2016-08-31] MEDS: DICYCLOMINE HCL 20 MG TABLET PO SCH ×3 (09:20→21:22)
[2016-08-31 13:52] LABS: *AMPHETAMINE, URINE NEGATIVE (NEGATIVE); *BARBITURATE, URINE NEGATIVE (NEGATIVE); *CANNABINOID, URINE NEGATIVE (NEGATIVE); *COCCAINE, URINE NEGATIVE (NEGATIVE); *OPIATE, URINE NEGATIVE (NEGATIVE); *PHENCYCLIDINE SCREEN,URINE NEGATIVE (NEGATIVE)
[2016-08-31 14:47] VITALS: BP 112/76
[2016-08-31] MEDS ORDERED: DICY20TA28 PO (17:03)
[2016-08-31] MEDS ORDERED: QUET100T PO (17:03)
[2016-08-31] MEDS ORDERED: BUSP5TAB3 PO (17:03)
[2016-08-31] MEDS ORDERED: MUPI22OI2 NS (17:03)
[2016-08-31] MEDS ORDERED: IBUP-1955 PO (17:03)
[2016-08-31] MEDS ORDERED: HYDR-3895 PO (17:03)
[2016-08-31] MEDS ORDERED: BACL10TA PO (17:03)
[2016-08-31] MEDS ORDERED: BUPR-96 PO (17:03)
[2016-08-31] MEDS ORDERED: CLON0.1T14 PO (17:03)
[2016-08-31 19:00] VITALS: BP 100/63
--- NOTE | 2016-08-31 19:21 | NUR ---
END OF SHIFT NOTE: PT IS IN STABLE CONDITION AT THIS TIME, PT IS SET TO DISCHARGE TOMORROW, LAST COWS 2 AND LAST CIWA 2. PT WAS ADMITTED TO [facility] FOR OPIATE AND BENZO WITHDRAWAL/DEPENDENCE. PT TOLERATED TAPER WELL NO A/R NOTED
--- NOTE | 2016-08-31 19:30 | NUR ---
START OF SHIFT Pt is a 26 yo male admitted to [facility] on 08/25 for opiate and Benzo dependence. He is A/O x 4. Allergies to bees and naloxone, full code status, and on a regular diet. Pt is on isolations precautions for MRSA of the nares. He has a PMH of hepatitis C, anxiety, and depression. Pt started Ativan and Subutex tapers on 08/26. He is compliant with treatment. Last COWS 3 and CIWA 2. Fall and seizure precautions in place.Received in stable condition. Scheduled for DC in the morning. All needs have been met. All safety measures in place per hospital policy. Bed locked and in lowest position, side rails up x2 and padded, call light within reach. Will continue to monitor.
[2016-08-31 20:00] VITALS: BP 116/64
[2016-08-31] MEDS: QUETIAPINE FUMARATE 100 MG TABLET PO SCH (21:22)
[2016-09-01] VITALS: BP 110/66
--- NOTE | 2016-09-01 04:00 | NUR ---
REFUSED V/S COWS/CIWA DEFERRED PT IS IN DEEP SLEEP,BREATHING EVEN AND NON LABORED,NO S/S OF DISTRESS NOTED,WILL CONTINUE TO MONITOR.
--- NOTE | 2016-09-01 06:53 | NUR ---
END OF SHIFT Pt is a 26 yo male admitted to [facility] on 08/25 for opiate and BZD dependence. He is A/O x 4.. Allergies to bees and naloxone, full code status, and on a regular diet. Pt is on isolations precautions for MRSA of the nares. He has a PMH of hepatitis C, anxiety, and depression. He is compliant with treatment. Last COWS 2 and CIWA 2. Fall and seizure precautions in place. Scheduled for DC in the morning. No PRN meds given.Pt slept 5 hrs,fluid intake was 1065 mls,voided x 2.All needs have been met. All safety measures in place per hospital policy. Bed locked and in lowest position, side rails up x2 and padded, call light within reach. Will continue to monitor.
--- NOTE | 2016-09-01 07:10 | NUR ---
Start of Shift Notes: Received patient in his room. Awake, alert and verbally responsive. Able to make needs known. Oriented x 4. Respirations even and unlabored. NO SOB noted. Skin warm and moist to touch. Abdomen soft and non-distended with (+) BS in all 4 quadrants. No complains of N/V/D or constipation noted. Bladder non-distended. No complains of dysuria. Ambulatory ad marya with steady gait. Patient is a 26 year old male admitted for opiate and BZO dependence who was placed on a 5-day Ativan amd 5-day Subutex taper as ordered. No adverse reactions noted. Completed taper and will be discharing today. No delayed reactions noted. Has past medical hx of anxiety, depression, and Hep C. Prior to admission, patient was using 1.5 to 2 grams of Heroin IV and 6-10mg of Xanax daily x 4 weeks. Educated patient on his current plan of care for the day and his medication regimen, including the discharge process. Patient verbalized good understanding. Will continue to monitor closely. Slept for 7 hours.
[2016-09-01 08:00] VITALS: BP 124/74
[2016-09-01 08:26] VITALS: BP 124/74
[2016-09-01] MEDS: MULTIVITAMINS,THERAPEUTIC TABLET PO SCH (08:26)
[2016-09-01] MEDS: buPROPion XL 150 MG TAB.SR.24H PO SCH (08:26)
[2016-09-01] MEDS: CLONIDINE HCL 0.1 MG TABLET PO SCH (08:26)
[2016-09-01] MEDS: MUPIROCIN 2% OINT 22 GM TUBE NS SCH (08:26)
[2016-09-01] MEDS: DICYCLOMINE HCL 20 MG TABLET PO SCH (08:26)
[2016-09-01] MEDS: busPIRone 5 MG TABLET PO SCH (08:26)
[2016-09-01] MEDS: BACLOFEN 10 MG TABLET PO SCH (08:26)
--- NOTE | 2016-09-01 08:30 | NUR ---
Discharge Instructions: Patient education provided regarding his discharge instructions. Patient verbalized good understanding of all teachings. Included on the discharge instructions were also his copy of most recent TB test, prescription from primary MD and psych MD, as well as most recent UDS. Cassette checked for any homes meds. None noted. No toiletries brought in the floor. Will continue to monitor closely. Patient is to be discharging to [facility] and to be picked up by [facility]. Awaiting for patient to be picked up. VS stable. CIWA 0/COWS 0.
--- NOTE | 2016-09-01 10:25 | NUR ---
Discharged: Patient left the unit at this time in stable condition. No s/s of withdrawal noted. CIWA 0. COWS 0. Denies any complains of pain. Escorted off the unit by male facility security officer. [facility] to be transported to [facility].
== END 2016-09-01 10:20 | disposition other institution (70) | DRG 895 ==
LOC: SRC 21:36
PROVIDERS: ADMIT Internal Medicine; ATTEND Internal Medicine
PROC: HZ2ZZZZ Detoxification Services for Substance Abuse Treatment (ICD-10-PCS; principal; 2016-08-25)
PROC: HZ41ZZZ Group Counseling for Substance Abuse Treatment, Behavioral (ICD-10-PCS; 2016-08-27)
PROC: HZ31ZZZ Individual Counseling for Substance Abuse Treatment, Behavioral (ICD-10-PCS; 2016-08-27)
DX: F11.23 Opioid dependence with withdrawal (principal); F32.1 Major depressive disorder, single episode, moderate; E87.3 Alkalosis; F13.232 Sedative, hypnotic or anxiolytic dependence with withdrawal with perceptual disturbance; F17.210 Nicotine dependence, cigarettes, uncomplicated; Z91.030 Bee allergy status; Z79.899 Other long term (current) drug therapy; Z22.322 Carrier or suspected carrier of Methicillin resistant Staphylococcus aureus; B19.20 Unspecified viral hepatitis C without hepatic coma; F10.21 Alcohol dependence, in remission; F14.21 Cocaine dependence, in remission; F15.21 Other stimulant dependence, in remission; E86.0 Dehydration
CPT/HCPCS: 36415; 70030-TC; 80307; 80345; 80346; 80361; 83735; 84443; 85025; 86580; 86592; 86705; 86803; 87340; 87806; A4663; G0480

== ENCOUNTER 2018-05-24 01:27 | Emergency (ER) | payer BC, OTHER ==
[~2018-05-24] VITALS: Ht 185.4 cm; Wt 71.7 kg
[~2018-05-24 01:27] MED LIST changes: +BACL10TA PO; -BENZ12LI MM; +BUPR-96 PO; +BUSP5TAB3 PO; +CLON0.1T14 PO; -GABA800T2 PO; -HYDR30CR10 TP; +IBUP-1955 PO; -IBUP-1957 PO; -LIDO20SO MM; -LIDO30AD10 TD; -METH-33 PO; -MULT-24 PO; +MUPI22OI2 NS; -NICO-463 BC; -SODI45SP6 NS; -[UNRECOGNIZED DRUG - CODE] TP
--- NOTE | 2018-05-24 02:00 | NUR ---
Pt comes to ER with c/o intermittent chest pain x 1.5 months. Pt state he saw his PMD regarding this complaint already. States he took 1 nitro sublingual 1 hr ago. Appears in no apparent distress. No N/V/D. Vital signs are stable.
--- NOTE | 2018-05-24 03:39 | NUR ---
Patient discharged to home in stable conditon. Written and verbal after care instructions given. Patient verbalizes understanding of instructions. Pt ambulated out of ER in stable gait with friend. Appears in no distress. All belongings w pt. VSS.
[2018-05-24 03:43] VITALS: BP 116/74
== END 2018-05-24 03:43 | disposition home or self-care (01) ==
LOC: ER 01:28
DX: R07.89 Other chest pain (principal); Z88.8 Allergy status to other drugs, medicaments and biological substances; F17.200 Nicotine dependence, unspecified, uncomplicated; Z79.1 Long term (current) use of non-steroidal anti-inflammatories (NSAID); Z79.51 Long term (current) use of inhaled steroids; Z79.899 Other long term (current) drug therapy
CPT/HCPCS: 71045; 93005; A4663

== ENCOUNTER 2021-04-23 17:52 | Emergency (ER) | payer BC ==
[~2021-04-23] VITALS: Ht 185.4 cm; Wt 71.7 kg
[~2021-04-23 17:52] MED LIST changes: -BUPR-51 PO; +BUPR-53 PO; +DICY20TA2 PO; -DICY20TA28 PO
[2021-04-23] MEDS ORDERED: CEPH500C2 PO (18:28)
[2021-04-23] MEDS ORDERED: BUPR8TAB4 SL (18:28)
[2021-04-23 20:16] LABS: *MONOTEST POSITIVE (NEGATIVE)
[2021-04-23] MEDS: DEXAMETHASONE SOD PHOSPHATE 4 MG INJ IM ONE (20:47)
[2021-04-23] MEDS ORDERED: DEXAMETHASONE SOD PHOSPHATE 10 MG INJ ONE (20:52)
--- NOTE | 2021-04-23 21:09 | NUR ---
Patient discharged to home in stable condition. Written and verbal after care instructions given. Patient verbalizes understanding of instructions. Stressed follow up or return to ER for worsening s/s. pt ambulated with steady gait. denies pain.
[2021-04-23 21:10] VITALS: BP 110/61
== END 2021-04-23 21:10 | disposition home or self-care (01) ==
LOC: ER 17:54
DX: B27.90 Infectious mononucleosis, unspecified without complication (principal); Z86.19 Personal history of other infectious and parasitic diseases
CPT/HCPCS: 36415; 86308; 86403; 87070; 96372; 99283; J1100; A4663